=== PATIENT | male | born 1980 | race Caucasian/White ===

== ENCOUNTER 2021-03-04 07:10 | Outpatient (REF) | payer OTHER, SELFPAY ==
[2021-03-04 08:49] LABS: Hematocrit 45.4 % (42-52); Hemoglobin 15.2 g/dl (14.0-18.0); Mean Corpuscular HGB Conc 33.5 g/dl (31.0-36.0); Mean Corpuscular Hemoglobin 28.7 pg (27.0-33.0); Mean Corpuscular Volume 85.7 fL (80-98); Mean Platelet Volume 10.8 fL (9.4-12.4); Platelet Count 258 X10*3/uL (160-400); Red Cell Distribution Width 12.5 % (11.0-16.0); White Blood Count 5.5 X10*3/uL (4.8-10.8)
[2021-03-04 08:54] LABS: Estimated Average Glucose 97 mg/dL
[2021-03-04 09:12] LABS: Alanine Aminotransferase 30 U/L (0-40); Albumin Level 4.2 g/dL (3.5-5.0); Alkaline Phosphatase 51 U/L (39-117); Anion Gap 12 (12-20); Aspartate Amino Transferase 21 U/L (5-37); Bilirubin Total 0.6 mg/dL (0.0-1.0); Blood Urea Nitrogen 13 mg/dL (9-16); Calcium 9.4 mg/dL (8.4-10.2); Carbon Dioxide 27 mmol/L (22-29); Chloride 106 mmol/L (96-108); Cholesterol 154 mg/dL; Estimated Glomerular Filt Rate > 60; Glucose Fasting 101 mg/dL (60-99); HDL Cholesterol 32 mg/dL; LDL Cholesterol Calculated 105 mg/dl; Potassium 4.8 mmol/L (3.3-5.1); Sodium 140 mmol/L (135-145); Total Protein 6.7 g/dL (6.5-8.0); Triglycerides 88 mg/dL
[2021-03-04 09:22] LABS: TSH reflex Free T4 0.99 uIU/mL (0.32-4.0); Vitamin D 25-OH Total 26.9 ng/mL (>30)
== END 2021-03-04 07:11 | disposition home or self-care (01) ==
LOC: HO.LAB 07:10
PROVIDERS: PCP Physician Assistant; Visit Provider Physician Assistant
DX: E66.01 Morbid (severe) obesity due to excess calories (principal); Z68.42 Body mass index [BMI] 45.0-49.9, adult; I10 Essential (primary) hypertension; E78.00 Pure hypercholesterolemia, unspecified; E55.9 Vitamin D deficiency, unspecified
CPT/HCPCS: 36415; 80053; 80061; 82306; 83036; 84443; 85027

== ENCOUNTER 2021-10-09 07:15 | Outpatient (REF) | payer OTHER, SELFPAY ==
[2021-10-09 08:06] LABS: Hematocrit 44.5 % (42.0-52.0); Hemoglobin 15.3 g/dl (14.0-18.0); Mean Corpuscular HGB Conc 34.4 g/dl (31.0-36.0); Mean Corpuscular Hemoglobin 29.2 pg (27.0-33.0); Mean Corpuscular Volume 84.9 fL (80.0-98.0); Mean Platelet Volume 10.6 fL (9.4-12.4); Platelet Count 257 X10*3/uL (160-400); Red Blood Count 5.24 X10*6/uL (4.60-5.80); Red Cell Distribution Width 12.3 % (11.0-16.0); White Blood Count 5.4 X10*3/uL (4.8-10.8)
[2021-10-09 08:18] LABS: Estimated Average Glucose 97 mg/dL
[2021-10-09 08:27] LABS: Alanine Aminotransferase 34 U/L (0-40); Albumin Level 4.2 g/dL (3.5-5.0); Alkaline Phosphatase 46 U/L (39-117); Anion Gap 11 (12-20); Aspartate Amino Transferase 21 U/L (5-37); Bilirubin Total 0.7 mg/dL (0.0-1.0); Blood Urea Nitrogen 12 mg/dL (9-16); Calcium 9.5 mg/dL (8.4-10.2); Carbon Dioxide 24 mmol/L (22-29); Chloride 108 mmol/L (96-108); Cholesterol 144 mg/dL; Estimated Glomerular Filt Rate > 60; Glucose Fasting 105 mg/dL (60-99); HDL Cholesterol 28 mg/dL; LDL Cholesterol Calculated 102 mg/dl; Potassium 4.3 mmol/L (3.3-5.1); Sodium 139 mmol/L (135-145); Total Protein 6.8 g/dL (6.5-8.0); Triglycerides 74 mg/dL
[2021-10-09 08:49] LABS: TSH reflex Free T4 1.47 uIU/mL (0.32-4.0); Vitamin D 25-OH Total 31.6 ng/mL (>30)
== END 2021-10-09 07:16 | disposition home or self-care (01) ==
LOC: HO.LAB 07:15
PROVIDERS: PCP Physician Assistant; Visit Provider Physician Assistant
DX: E66.01 Morbid (severe) obesity due to excess calories (principal); Z68.42 Body mass index [BMI] 45.0-49.9, adult; E55.9 Vitamin D deficiency, unspecified; E78.00 Pure hypercholesterolemia, unspecified
CPT/HCPCS: 36415; 80053; 80061; 82306; 83036; 84443; 85027

== ENCOUNTER 2023-05-25 07:53 | Outpatient (AMB) | payer OTHER, SELFPAY ==
[2023-05-25 08:06] VITALS: BP 118/72; PULSE 86; O2SAT 99; BMI 43.1
--- NOTE | 2023-05-25 08:06 | MHC.PC.OV ---
Vital Signs 05/25/23 08:06 Height 5 ft 11 in Weight 309 lb BMI 43.1 BP 118/72 Blood Pressure Location Lt brachial Position Sitting Pulse 86 Pulse Source Pulse Oximeter Pulse Oximetry (%) 99 Oxygen Delivery Method Room Air Intake Visit Reasons: PE Allergies No Known Allergies [No Known Allergies*] Allergy (Verified 05/25/23 08:14) Medication List - Last Reconciled 05/25/23 by Romeo Bass PA-C atorvastatin 20 mg PO DAILY 90 days cholecalciferol (vitamin D3) 50 mcg PO DAILY Tobacco use date assessed: 05/25/23 Dental Screening Dental Screen Date: 05/25/23 Did you have a dental visit in the last 12 months?: Yes Did you have a dental problem in the last 6 months where you did not have access to dental care?: No Was dental information given to patient?: Patient has dentist HPI PE HPI Details Patient is a 43-year-old here today for and annual physical. . Patient has a past history significant for morbid obesity Hypercholesterol, worthons tumor. .. 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 ENT speacialist recommending removal. .. Hyperlipidemia: Patient continues on atorvastatin 20 mg in his cholesterol is been stable. .. Obesity: Has lost weight since last office visit. He reports he has recently started going back to his [employer] gym. vaccine: UTD with COVID , flu Laboratory Tests 11/11/19 09:30 Creatinine 0.86 Total Bilirubin 1.2 H Cholesterol 139 D LDL Cholesterol, C alc 92 25-OH Vitamin D To nickie 24.6 Laboratory Tests 03/04/21 10/09/21 07:30 07:24 Cholesterol 144 LDL Cholesterol, C alc 105 102 [facility] Surgical History History of lipoma History of eye surgery History of root canal procedure History of wisdom tooth extraction Family History Father Medical history unknown Mother No problems noted. 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 1. Little interest or pleasure in doing things: not at all 2. Feeling down, depressed, or hopeless: not at all 3. Trouble falling or staying asleep, or sleeping too much: not at all 4. Feeling tired or having little energy: not at all 5. Poor appetite or overeating: not at all 6. Feeling bad about yourself - or that you are a failure or have let yourself or your family down: not at all 7. Trouble concentrating on things, such as reading the newspaper or watching television: not at all 8. Moving or speaking so slowly that other people could have noticed. Or the opposite - being so fidgety or restless that you have been moving around a lot more than usual: not at all 9. Thoughts that you would be better off or of hurting yourself in some way: not at all Total score: 0 Depression Screening Interpretation: Negative 56192 - PHQ-9 Billing: Yes Source: Developed by Drs. Oleg Amanda, Dominique Valencia, Steven Scruggs and colleagues, with an educational verónica from [employer]. Thrive Questionnaire Date Thrive assessed: 05/25/23 I am a: Patient What is your living situation today?: I have a steady place to live Within the past 12 months, did the food you bought not last and you didn't have the money to get more?: Never true Within the past 12 months, did you worry whether your food would run out before you got money to buy more?: Never true Do you have trouble paying for medicines?: No Do you have trouble getting transportation to medical appointments?: No Do you have trouble paying your heating and electricity bill?: No Do you have trouble taking care of your child, family member or friend?: No Do you have trouble with day-to-day activities such as bathing, preparing meals, shopping, managing finances, etc.?: No Are you currently unemployed and looking for a job?: No Are you interested in more education?: No Currently or been in a relationship where the following occur: no concerns reported AUDIT C Alcohol Use Questionnaire (AUDIT-C) 1. How often do you have a drink containing alcohol?: 2-3 times a week 2. How many drinks containing alcohol do you have on a typical day when you are drinking?: 1 or 2 3. How often do you have six or more drinks on one occasion?: Never Total Score: 3 Score Reviewed/Action Taken: No VELVET-7 AMB Questionnaire VELVET-7 Date VELVET - 7 assessed: 05/25/23 Feeling nervous, anxious, or on edge: 0 = Not at all Not being able to stop or control worryin = Not at all Worrying too much about different things: 0 = Not at all Trouble relaxin = Not at all Being so restless that it is hard to sit still: 0 = Not at all Becoming easily annoyed or irritable: 0 = Not at all Feeling afraid as if something awful might happen: 0 = Not at all Total VELVET-7 score (0-4 normal; 5-9 mild; 10-14 moderate; 15-21 severe): 0 Source: Developed by Drs. Oleg Amanda, Dominique Valencia, Steven Scruggs and colleagues, with an educational verónica from [employer]. VELVET-7 Assessment Billing VELVET-7 Assessment Tool: VELVET-7 Assessment 02076 Review of Systems Const Denies body aches, Denies chills, Denies excessive sweating, Denies fatigue, Denies fever(s) and Denies headache(s) Eyes Denies blurry vision ENT Denies dysphagia, Denies vertigo, Denies dizziness, Denies headache(s), Denies hearing loss and Denies tinnitus Card Denies chest pain, Denies chest pain with activity, Denies syncope, Denies irregular heart rhythm and Denies dyspnea Resp Denies chest congestion, Denies cough, Denies hemoptysis, Denies dyspnea and Denies wheezing GI Denies abdominal pain, Denies melena, Denies hematochezia, Denies coffee ground emesis, Denies dysphagia, Denies diarrhea, Denies nausea and Denies vomiting Denies difficulty urinating, Denies dysuria, Denies urinary frequency, Denies urinary hesitancy and Denies urinary urgency Musc Denies arthralgias, Denies limited range of motion, Denies muscle cramps and Denies muscle weakness Skin/Breast Denies rash and Denies skin ulcer Neuro Denies Abnormal speech present, Denies confusion, Denies vertigo, Denies dizziness, Denies syncope, Denies headache(s), Denies memory loss and Denies seizure-like activity Psych Denies anxiety, Denies confusion, Denies depression, Denies memory loss, Denies panic attacks and Denies paranoia Endo Denies excessive sweating, Denies fatigue, Denies flushing, Denies polydipsia and Denies polyuria Aller/Immun Denies wheezing Physical exam (Primary Care) Vital Signs: Last Vital Signs Pulse 86 05/25/23 08:06 BP 118/72 05/25/23 08:06 Pulse Ox 99 05/25/23 08:06 Oxygen Delivery Method Room Air 05/25/23 08:06 BMI result Body Mass Index 43.1 BMI Assessment/Plan discussion: High Tobacco/Smoking Status: Tobacco use Status Tobacco use date assessed 05/25/23 05/25/23 08:12 Patient Tobacco Use Status Never used Tobacco 05/25/23 08:12 Tobacco use type Cigarette 05/25/23 08:12 e-Cigarette/Vaping Use Never Used 05/25/23 08:12 PHQ-9: PHQ-9 Score PHQ-9: Total score 0 05/25/23 08:12 Depression Screening Interpretation: Negative Thrive Assessment: Date of Thrive Assessment Date Thrive assessed 05/25/23 05/25/23 08:12 Currently or been in a relationship where the following occur: no concerns reported Const Other: Obese General: cooperative, comfortable, no acute distress, alert and awake; No confusion Orientation/consciousness: oriented to person, oriented to place, patient oriented x3 and No confusion HENMT Head: Yes normocephalic Head images: 1. SMALL PALPABLE MASS OVER LEFT TMJ REGION Ears: external ears normal and TM's normal bilaterally Face and sinus: No sinus tenderness Mouth: Normal oral and palatal mucosa present and tongue normal Teeth and gingiva: dentition normal and gingiva normal Throat: Yes posterior oropharynx normal, Yes tonsils normal and Yes uvula midline Eyes Conjunctivae: conjunctivae normal Sclerae: sclerae normal Pupils: Equal, round and reactive pupils present EOM: EOMs intact bilaterally Direct Ophthalmoscopy: No no photophobia Neck Neck: Yes no lymphadenopathy, No tender and Yes no JVD Thyroid: Thyroid normal Carotids: no bruits Chest Chest palpation & inspection: no tenderness Resp Effort & Inspection: normal respiratory effort, no audible wheezes, not labored and no stridor Auscultation: no crackles, no rales, no rhonchi and no wheezes Cardio Jugular venous distension: no JVD Rate: regular rate, not bradycardic and not tachycardic Rhythm: regular rhythm Bruits: no carotid bruits Peripheral pulses: Peripheral pulses 2+ throughout GI Inspection: Yes normal to inspection, No abdominal wall ecchymosis and No visible herniation Palpation (GI): Soft to palpation, nontender, no guarding, not rigid and No hepatosplenomegaly present Auscultation: normoactive bowel sounds General: Yes no CVA tenderness Back/Spine/Pelvis Back: no CVA tenderness and No back tenderness Cervical Spine: cervical ROM normal Thoracic/Lumbar Spine: thoracic and lumbar spine normal to inspection, straight leg raise negative bilaterally, No thoraco-lumbar ROM limited and No lumbar spinal tenderness Skin Lesions: no lesions Rashes: no rashes Wounds: no wounds Neuro General: oriented to person, oriented to place, patient oriented x3, CN's II-XI intact bilaterally and No confusion Cranial nerves: Yes Equal, round and reactive pupils present and Yes Normal accommodation reflex present Cognition (Neuro): normal cognition Speech: No Abnormal speech present Gait exam (Neuro): Normal gait present Motor exam (neuro): 5/5 motor strength present throughout Extrem Right upper extremity: full ROM; no cyanosis Left upper extremity: full ROM; no cyanosis Right lower extremity: no edema Left lower extremity: no edema Psych Appearance: grossly normal Mental Status: mental status grossly normal Affect: normal affect Attitude: cooperative Thought process: Normal thought process present Assessment and Plan Assessment & Plan (1) Annual physical exam: Code(s): Z00.00 - Encounter for general adult medical examination without abnormal findings (2) HLD (hyperlipidemia): Code(s): E78.5 - Hyperlipidemia, unspecified Qualifiers: Hyperlipidemia type: pure hypercholesterolemia Qualified Code(s): E78.00 - Pure hypercholesterolemia, unspecified Plan: Patient continues on statin therapy without any side effect. Most recent lipid panel showing excellent control of his total cholesterol and LDL. (3) Obese: Code(s): E66.9 - Obesity, unspecified Qualifiers: Obesity type: due to excess calories Obesity classification: adult class 3 (BMI >= 40) Serious obesity comorbidity presence: without serious comorbidity Body mass index: BMI 40.0-44.9 Qualified Code(s): E66.01 - Morbid (severe) obesity due to excess calories; Z68.41 - Body mass index [BMI] 40.0-44.9, adult Plan: Patient is seeing an alternative medicine clinic and has been started on weight loss medication as lost 15 lb in the last month. He continues to work on being more physically active and adapting to better eating habits and can to speed's more weight loss. 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 They offered elective removal though patient is holding off for now. Orders: Orders Comprehensive [facility]. Panel Fast Today E78.00 - Pure hypercholesterolemia, unspecified Vitamin D 25-OH Total Today E55.9 - Vitamin D deficiency, unspecified Lipid Panel Today E78.00 - Pure hypercholesterolemia, unspecified Coding Level of Care Code Est Pt Prev Care 40-64y(18427) Diagnoses Annual physical exam Z00.00 Pure hypercholesterolemia E78.00 Hyperlipidemia type: pure hypercholesterolemia Class 3 severe obesity due to excess calories without serious comorbidity with body mass index (BMI) of 40.0 to 44.9 in adult E66.01; Z68.41 Obesity type: due to excess calories Obesity classification: adult class 3 (BMI >= 40) Serious obesity comorbidity presence: without serious comorbidity Body mass index: BMI 40.0-44.9 Submandibular gland mass K11.8 Additional Codes VELVET-7 Assessment Billing - VELVET-7 Assessment Tool: VELVET-7 Assessment [id number] ([id number])
== END 2023-05-25 08:30 | disposition home or self-care (01) ==
PROVIDERS: PCP Physician Assistant; Visit Provider Physician Assistant
DX: Z00.00 Encounter for general adult medical examination without abnormal findings (principal); E78.00 Pure hypercholesterolemia, unspecified; E66.01 Morbid (severe) obesity due to excess calories; Z68.41 Body mass index [BMI] 40.0-44.9, adult; K11.8 Other diseases of salivary glands
CPT/HCPCS: 99396

== ENCOUNTER 2023-05-29 08:02 | Outpatient (REF) | payer OTHER, SELFPAY ==
[2023-05-29 09:38] LABS: Alanine Aminotransferase 33 U/L (0-40); Albumin Level 4.3 g/dL (3.5-5.0); Alkaline Phosphatase 46 U/L (39-117); Anion Gap 14 (12-20); Aspartate Amino Transferase 22 U/L (5-37); Bilirubin Total 0.8 mg/dL (0.0-1.0); Blood Urea Nitrogen 11 mg/dL (9-16); Calcium 9.4 mg/dL (8.4-10.2); Carbon Dioxide 23 mmol/L (22-29); Chloride 106 mmol/L (96-108); Cholesterol 128 mg/dL (<200); Estimated Glomerular Filt Rate > 60; Glucose Fasting 90 mg/dL (60-99); HDL Cholesterol 30 mg/dL (>40); LDL Cholesterol Calculated 71 mg/dL (<100); Potassium 4.3 mmol/L (3.3-5.1); Sodium 139 mmol/L (135-145); Triglycerides 137 mg/dL (<150)
[2023-05-29 09:52] LABS: Vitamin D 25-OH Total 40.5 ng/mL (>30)
== END 2023-05-29 08:03 | disposition home or self-care (01) ==
LOC: HO.LAB 08:02
PROVIDERS: PCP Physician Assistant; Visit Provider Physician Assistant
DX: E78.00 Pure hypercholesterolemia, unspecified (principal); E55.9 Vitamin D deficiency, unspecified
CPT/HCPCS: 36415; 80053; 80061; 82306

== ENCOUNTER 2024-05-30 07:58 | Outpatient (AMB) | payer OTHER, SELFPAY ==
--- NOTE | 2024-05-30 08:13 | A.OFFPC_ITS ---
Vital Signs 05/30/24 08:16 Height 5 ft 11 in Weight 278 lb BMI 38.8 BP 118/72 Blood Pressure Location Lt brachial Position Sitting Intake Visit Reasons: Annual Exam Intake Note: Patient here for an annual physical exam Hospital Wellness Coordinator Required: No Accompanied by: Self / Same As Patient Allergies No Known Allergies [No Known Allergies*] Allergy (Verified 05/30/24 08:21) Medication List - Last Reconciled 05/30/24 by Romeo Bass PA-C atorvastatin 20 mg PO DAILY 90 days cholecalciferol (vitamin D3) 50 mcg PO DAILY Tobacco use date assessed: 05/30/24 Dental Screening Dental Screen Date: 05/30/24 Did you have a dental visit in the last 12 months?: Yes Did you have a dental problem in the last 6 months where you did not have access to dental care?: No Was dental information given to patient?: Patient has dentist HPI Annual Exam HPI Details Patient is a 44-year-old here today for and annual physical. . Patient has a past history significant for morbid obesity Hypercholesterol, worthons tumor. concerns--> patient reports over the last several months feeling a sensation of cold in his hands intermittently. Also has had a decreased sense of smell for quite some time and has upcoming appointment with ENT for evaluation. He can not recall having COVID infection and has had all his COVID booster vaccines. .. 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 ENT speacialist recommending removal. .. Hyperlipidemia: Patient continues on atorvastatin 20 mg in his cholesterol is been stable. .. Obesity: Attending in clinic in getting semaglutide injections. Has lost quite a bit of weight and feels great. Today's BMI at 38 He reports he has recently started going back to his [employer] gym. vaccine: UTD with COVID , flu and tetanus vaccine [facility] Surgical History History of lipoma History of eye surgery History of root canal procedure History of wisdom tooth extraction Family History Father Medical history unknown Mother No problems noted. 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 1. Little interest or pleasure in doing things: not at all 2. Feeling down, depressed, or hopeless: not at all 3. Trouble falling or staying asleep, or sleeping too much: not at all 4. Feeling tired or having little energy: not at all 5. Poor appetite or overeating: not at all 6. Feeling bad about yourself - or that you are a failure or have let yourself or your family down: not at all 7. Trouble concentrating on things, such as reading the newspaper or watching television: not at all 8. Moving or speaking so slowly that other people could have noticed. Or the opposite - being so fidgety or restless that you have been moving around a lot more than usual: not at all 9. Thoughts that you would be better off or of hurting yourself in some way: not at all Total score: 0 Depression Screening Interpretation: Negative Depression Screening Done: Yes 25066 - PHQ-9 Billing: Yes Source: Developed by Drs. Oleg Amanda, Dominique Valencia, Steven Scruggs and colleagues, with an educational verónica from [employer]. Thrive Questionnaire Date Thrive assessed: 05/23/24 I am a: Patient What is your living situation today?: I have a steady place to live Within the past 12 months, did the food you bought not last and you didn't have the money to get more?: Never true Within the past 12 months, did you worry whether your food would run out before you got money to buy more?: Never true Do you have trouble paying for medicines?: No Do you have trouble getting transportation to medical appointments?: No Do you have trouble paying your heating and electricity bill?: No Do you have trouble taking care of your child, family member or friend?: No Do you have trouble with day-to-day activities such as bathing, preparing meals, shopping, managing finances, etc.?: No Are you currently unemployed and looking for a job?: No Are you interested in more education?: No Please select the resources that you would like help with: None Currently or been in a relationship where the following occur: No concerns reported THRIVE Score: 0 AUDIT C Alcohol Use Questionnaire (AUDIT-C) 1. How often do you have a drink containing alcohol?: 2-4 times a month 2. How many drinks containing alcohol do you have on a typical day when you are drinking?: 1 or 2 3. How often do you have six or more drinks on one occasion?: Less than monthly Total Score: 3 VELVET-7 AMB Questionnaire VELVET-7 Date VELVET - 7 assessed: 05/30/24 Feeling nervous, anxious, or on edge: 0 = Not at all Not being able to stop or control worryin = Not at all Worrying too much about different things: 0 = Not at all Trouble relaxin = Several days Being so restless that it is hard to sit still: 0 = Not at all Becoming easily annoyed or irritable: 1 = Several days Feeling afraid as if something awful might happen: 0 = Not at all Total VELVET-7 score (0-4 normal; 5-9 mild; 10-14 moderate; 15-21 severe): 2 Source: Developed by Drs. Oleg Amanda, Dominique Valencia, Steven Scruggs and colleagues, with an educational verónica from [employer]. VELVET-7 Assessment Billing VELVET-7 Assessment Tool: VELVET-7 Assessment 64214 Review of Systems Const Denies body aches, Denies chills, Denies excessive sweating, Denies fatigue, Denies fever(s) and Denies headache(s) Eyes Denies blurry vision ENT Denies dysphagia, Denies vertigo, Denies dizziness, Denies headache(s), Denies hearing loss and Denies tinnitus Card Denies chest pain, Denies chest pain with activity, Denies syncope, Denies irregular heart rhythm and Denies dyspnea Resp Denies chest congestion, Denies cough, Denies hemoptysis, Denies dyspnea and Denies wheezing GI Denies abdominal pain, Denies melena, Denies hematochezia, Denies coffee ground emesis, Denies dysphagia, Denies diarrhea, Denies nausea and Denies vomiting Denies difficulty urinating, Denies dysuria, Denies urinary frequency, Denies urinary hesitancy and Denies urinary urgency Musc Denies arthralgias, Denies limited range of motion, Denies muscle cramps and Denies muscle weakness Skin/Breast Denies rash and Denies skin ulcer Neuro Denies Abnormal speech present, Denies confusion, Denies vertigo, Denies dizziness, Denies syncope, Denies headache(s), Denies memory loss and Denies seizure-like activity Psych Denies anxiety, Denies confusion, Denies depression, Denies memory loss, Denies panic attacks and Denies paranoia Endo Denies excessive sweating, Denies fatigue, Denies flushing, Denies polydipsia and Denies polyuria Aller/Immun Denies wheezing Physical exam (Primary Care) Vital Signs: Last Vital Signs BP 118/72 05/30/24 08:16 BMI result Body Mass Index 38.8 Tobacco/Smoking Status: Tobacco use Status Tobacco use date assessed 05/30/24 05/30/24 08:20 Patient Tobacco Use Status Never used Tobacco 05/30/24 08:14 Tobacco use type 05/30/24 08:20 e-Cigarette/Vaping Use Never Used 05/30/24 08:14 PHQ-9: PHQ-9 Score PHQ-9: Total score 0 05/30/24 08:28 Depression Screening Interpretation: Negative Thrive Assessment: Date of Thrive Assessment Date Thrive assessed 05/23/24 05/30/24 08:14 Currently or been in a relationship where the following occur: No concerns reported Const General: cooperative, comfortable, no acute distress, alert and awake; No confusion Orientation/consciousness: oriented to person, oriented to place, patient oriented x3 and No confusion HENMT Head: Yes normocephalic Ears: external ears normal and TM's normal bilaterally Face and sinus: No sinus tenderness Mouth: Normal oral and palatal mucosa present and tongue normal Teeth and gingiva: dentition normal and gingiva normal Throat: Yes posterior oropharynx normal, Yes tonsils normal and Yes uvula midline Eyes Conjunctivae: conjunctivae normal Sclerae: sclerae normal Pupils: Equal, round and reactive pupils present EOM: EOMs intact bilaterally Direct Ophthalmoscopy: No no photophobia Neck Neck: Yes no lymphadenopathy, No tender and Yes no JVD Thyroid: Thyroid normal Carotids: no bruits Chest Chest palpation & inspection: no tenderness Resp Effort & Inspection: normal respiratory effort, no audible wheezes, not labored and no stridor Auscultation: no crackles, no rales, no rhonchi and no wheezes Cardio Jugular venous distension: no JVD Rate: regular rate, not bradycardic and not tachycardic Rhythm: regular rhythm Bruits: no carotid bruits Peripheral pulses: Peripheral pulses 2+ throughout GI Inspection: Yes normal to inspection, No abdominal wall ecchymosis and No visible herniation Palpation (GI): Soft to palpation, nontender, no guarding, not rigid and No hepatosplenomegaly present Auscultation: normoactive bowel sounds General: Yes no CVA tenderness Back/Spine/Pelvis Back: no CVA tenderness and No back tenderness Cervical Spine: cervical ROM normal Thoracic/Lumbar Spine: thoracic and lumbar spine normal to inspection, straight leg raise negative bilaterally, No thoraco-lumbar ROM limited and No lumbar spinal tenderness Skin Lesions: no lesions Rashes: no rashes Wounds: no wounds Neuro General: oriented to person, oriented to place, patient oriented x3, CN's II-XI intact bilaterally and No confusion Cranial nerves: Yes Equal, round and reactive pupils present and Yes Normal accommodation reflex present Cognition (Neuro): normal cognition Speech: No Abnormal speech present Gait exam (Neuro): Normal gait present Motor exam (neuro): 5/5 motor strength present throughout Extrem Right upper extremity: full ROM; no cyanosis Left upper extremity: full ROM; no cyanosis Right lower extremity: no edema Left lower extremity: no edema Psych Appearance: grossly normal Mental Status: mental status grossly normal Affect: normal affect Attitude: cooperative Thought process: Normal thought process present Assessment and Plan Assessment & Plan (1) Annual physical exam: Code(s): Z00.00 - Encounter for general adult medical examination without abnormal findings (2) HLD (hyperlipidemia): Code(s): E78.5 - Hyperlipidemia, unspecified Qualifiers: Hyperlipidemia type: pure hypercholesterolemia Qualified Code(s): E78.00 - Pure hypercholesterolemia, unspecified Plan: Patient continues on statin therapy without any side effect. Most recent lipid panel showing excellent control of his total cholesterol and LDL. Goal LDL is to remain below 160 (3) Obese: Code(s): E66.9 - Obesity, unspecified Qualifiers: Body mass index: BMI 40.0-44.9 Obesity classification: adult class 3 (BMI >= 40) Obesity type: due to excess calories Serious obesity comorbidity presence: without serious comorbidity Qualified Code(s): E66.01 - Morbid (severe) obesity due to excess calories; Z68.41 - Body mass index [BMI] 40.0- 44.9, adult Plan: Patient is seeing an alternative medicine clinic and has been started on weight loss medication as lost significant amount of weight. He continues to work on being more physically active and adapting to better eating habits and can to speed's more weight loss. 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 They offered elective removal though patient is holding off for now. (5) Paresthesia of hand, bilateral: Code(s): R20.2 - Paresthesia of skin Plan: Patient does report bilateral hand sensation of coldness in some numbness. Does not appear to have any vascular compromise on physical exam. Will send for EMG to evaluate for bilateral carpal tunnel syndrome Orders: Orders NE electromyogram (EMG) 05/30/24 R20.2 - Paresthesia of skin Patient Instructions: Goal: LDL to remain below 160 Barriers: Adherence to physical activity and healthy eating habits Coding Level of Care Code Est Pt Prev Care 40-64y(05251) Diagnoses Annual physical exam Z00.00 Pure hypercholesterolemia E78.00 Hyperlipidemia type: pure hypercholesterolemia Class 3 severe obesity due to excess calories without serious comorbidity with body mass index (BMI) of 40.0 to 44.9 in adult E66.01; Z68.41 Body mass index: BMI 40.0-44.9 Obesity classification: adult class 3 (BMI >= 40) Obesity type: due to excess calories Serious obesity comorbidity presence: without serious comorbidity Submandibular gland mass K11.8 Paresthesia of hand, bilateral R20.2 Additional Codes VELVET-7 Assessment Billing - VELVET-7 Assessment Tool: VELVET-7 Assessment 63275 ([id number])
[2024-05-30 08:16] VITALS: BP 118/72; BMI 38.8
== END 2024-05-30 08:38 | disposition home or self-care (01) ==
PROVIDERS: PCP Physician Assistant; Visit Provider Physician Assistant
DX: Z00.00 Encounter for general adult medical examination without abnormal findings (principal); E78.00 Pure hypercholesterolemia, unspecified; E66.01 Morbid (severe) obesity due to excess calories; Z68.41 Body mass index [BMI] 40.0-44.9, adult; K11.8 Other diseases of salivary glands; R20.2 Paresthesia of skin

== ENCOUNTER → 2024-05-30 07:58 | Outpatient (BNVA) | payer OTHER, SELFPAY | PROVIDERS: PCP Physician Assistant; Visit Provider Physician Assistant | DX: Z00.01 Encounter for general adult medical examination with abnormal findings (principal); E78.00 Pure hypercholesterolemia, unspecified; E66.01 Morbid (severe) obesity due to excess calories; Z68.41 Body mass index [BMI] 40.0-44.9, adult; K11.8 Other diseases of salivary glands; R20.2 Paresthesia of skin; Z79.899 Other long term (current) drug therapy | CPT/HCPCS: 96127 ==

== ENCOUNTER 2024-07-11 10:28 | Outpatient (REF) | payer OTHER, SELFPAY ==
--- NOTE | 2024-07-11 10:30 | EMG_ITS ---
Bilateral median and ulnar motor and sensory studies were performed. Bilateral radial sensory and median and lateral antecubital brachial sensory studies were performed and paraspinal muscles were tested with a needle. 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 MD DANDRE Rodriguez/HANH / [id number]
== END 2024-07-11 10:29 | disposition home or self-care (01) ==
LOC: HO.NEURO 10:28
PROVIDERS: PCP Physician Assistant; Visit Provider Physician Assistant
DX: Z13.89 Encounter for screening for other disorder (principal)

== ENCOUNTER 2024-07-15 07:34 | Outpatient (REF) | payer OTHER, SELFPAY ==
[2024-07-15 09:55] LABS: Hematocrit 44.3 % (42.0-52.0); Hemoglobin 15.2 g/dl (14.0-18.0); Mean Corpuscular HGB Conc 34.3 g/dl (31.0-36.0); Mean Corpuscular Hemoglobin 29.7 pg (27.0-33.0); Mean Corpuscular Volume 86.7 fL (80.0-98.0); Mean Platelet Volume 10.5 fL (9.4-12.4); Platelet Count 240 X10*3/uL (160-400); Red Blood Count 5.11 X10*6/uL (4.60-5.80); Red Cell Distribution Width 12.5 % (11.0-16.0); White Blood Count 5.4 X10*3/uL (4.8-10.8)
[2024-07-15 10:22] LABS: Alanine Aminotransferase 29 U/L (0-40); Albumin Level 4.3 g/dL (3.5-5.0); Alkaline Phosphatase 42 U/L (39-117); Anion Gap 14 (12-20); Aspartate Amino Transferase 30 U/L (5-37); Bilirubin Total 0.8 mg/dL (0.0-1.0); Blood Urea Nitrogen 14 mg/dL (9-16); Carbon Dioxide 26 mmol/L (22-29); Chloride 107 mmol/L (96-108); Cholesterol 125 mg/dL (<200); Estimated Glomerular Filt Rate > 60; Glucose Fasting 94 mg/dL (60-99); HDL Cholesterol 35 mg/dL (>40); LDL Cholesterol Calculated 79 mg/dL (<100); Potassium 4.3 mmol/L (3.3-5.1); Sodium 143 mmol/L (135-145); Triglycerides 59 mg/dL (<150)
[2024-07-15 10:41] LABS: Vitamin D 25-OH Total 38.8 ng/mL (>30)
== END 2024-07-15 07:35 | disposition home or self-care (01) ==
LOC: HO.LAB 07:34
PROVIDERS: PCP Physician Assistant; Visit Provider Physician Assistant
DX: E78.00 Pure hypercholesterolemia, unspecified (principal); E55.9 Vitamin D deficiency, unspecified
CPT/HCPCS: 36415; 80053; 80061; 82306; 85027

== ENCOUNTER 2024-08-16 10:20 | Outpatient (AMB) | payer OTHER, SELFPAY ==
--- NOTE | 2024-08-16 10:34 | A.OFFVIS_ITS ---
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 Patient reports that he was seen by his PCP for his annual appointment and was referred for an EMG. He has a cold numbing sensation in both of his hands for the last 6 months. States his symptoms are equal in both hands. Denies dropping items. No previous tx or injuries. He does not use any bracing. 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 Patient states that his numbness and tingling is intermittent, daily, and worse at night. Patient states that this numbness and tingling affects the thumb, index, middle fingers of bilateral hands. Patient had EMG done on 07/11/2024 revealing mild carpal tunnel syndrome bilaterally. No other acute complaints or concerns at this time. [facility] Surgical History History of lipoma History of eye surgery History of root canal procedure History of wisdom tooth extraction Family History Father Medical history unknown Mother No problems noted. 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 Good APB muscle firing and good finger cross. Vascular: Capillary refill brisk. ROM: Patient can make a fist and extend all their digits. Skin: No lacerations or abrasions noted. General: No ecchymosis. No erythema or evidence of infection. 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 MD DANDRE Rodriguez/HANH Assessment & Plan Assessment & Plan (1) Bilateral carpal tunnel syndrome: Code(s): G56.03 - Carpal tunnel syndrome, bilateral upper limbs Category: Medical Plan One carpal tunnel syndrome, left Symptoms intermittent, daily, worse at night I educated the patient about the condition. I discussed both operative and nonoperative treatment options. The patient would like to proceed with surgery. The risks and benefits of operative treatment were discussed with the patient and the patient wishes to proceed with surgery. These risks include, but are not limited to, risk of damage to blood vessels, nerves, tendons, infection, recurrence, incomplete relief of preoperative symptoms, persistent pain, possible need for further surgery, and the risks associated with regional blocks and/or anesthesia. Plan is to take the patient to the operating room at some point in the next few weeks for the following procedures: 1. Left carpal tunnel release under local anesthesia All of the preoperative paperwork including the consent was discussed today. All of the patient's questions were answered in the clinic today. The patient understands that they will be in contact with our surgical appliance fitter to discuss scheduling their procedure. Patient denies diabetes, blood thinners, asthma, heart issues, lung issues, kidney issues, or current smoking. 2. Carpal tunnel syndrome, right Symptoms intermittent, daily, worse at night This time, patient would like proceed with operative intervention on the left prior to any intervention on the right Patient is advised that if he is recovering well in his postoperative visit from left-sided surgery, we can get the right side signed up at that time Patient was amenable to this plan Coding Level of Care Code New Pt Level 4 (64727) Diagnoses Bilateral carpal tunnel syndrome G56.03
--- OUTSIDE RECORDS SUMMARY | 2024-08-17 00:19 | XMS_ITS | Data Portability ---
Author Organization ANANTH Byrd [employer] [facility] [address] Address [address] [place] [address] Assessment No assessment recorded. Plan of Treatment Reminders Order Date Submit Date Provider Last Modified By Organization Details Last Modified Time Details Appointments None recorded. Lab None recorded. Referral None recorded. Procedures None recorded. Surgeries None recorded. Imaging None recorded. Medication Orders prednisone 10 mg tablet 2021 [facility]/Pharmacy #[id number], [address] [place], [address], 09:58:58 albuterol sulfate HFA 90 mcg/actuati on aerosol inhaler 2021 [facility]/Pharmacy #[id number], [address] [place], [address], 09:58:58 Patient TargetsNo targets recorded. Patient Instructions Encounter Date Encounter Id Patient Instructions Last Modified By Organization Details Last Modified Time 08/09/2022 [id number] cough: care instructions Not available 08/09/2022 09:58:56 Acute bronchitis is a common clinical condition characterized by an acute onset but persistent cough, with or without sputum production. It is typically self-limited, resolving within one to three weeks. Symptoms result from inflammation of the lower respiratory tract and are most frequently due to viral infection. Treatment is focused on patient education and supportive care. Antibiotics are not needed for the great majority of patients with acute bronchitis but are greatly overused for this condition. Reducing antibiotic use for acute bronchitis is a national and international health care priority. In most patients, the cough persists for 1 to 3 weeks, with a average duration of 18 days. The cough may be associated with either purulent or nonpurulent sputum production The presence of purulent sputum is a nonspecific finding and does not appear to be predictive of bacterial infection or that antibiotics are needed. For the great majority of patients, use of antibiotics does not hasten recovery or prevent complications but puts patients at increased risk of adverse effects including potentially severe complications such as Clostridioides difficile infection and anaphylaxis. Non-Pharmacological treatment for coughin. Throat lozenges 2. Hot tea 3. Honey 4. Smoking cessation 5. Avoidance of secondhand smoke. Pharmacological Treatment: 1. Robatussin or Guafenasin 2. Antihistamines 3. Dextromethoraphen I would plan on being seen again if any of the following symptoms develop: 1. Fever (100.5) 2. Shortness of breath 3. Wheezing 4. Worsening Cough. I would go to the ER if you develop: 1. Severe Shortness of breath 2. Chest Pain 3. Wheezing 4. Coughing up Blood Not available 08/09/2022 09:58:07 Reason for Referral None Reported. Problems Name Problem SNOMED Code Status Onset Date Resolution Date Notes Provider Name and Address Organization Details Recorded Time Hypercholestero lemia 78015139 Active 2021 ANANTH Drake - [facility] 09:15:21 Problem Notes None recorded. Medical Equipment None Reported. Allergies No known drug allergies Medications Name Sig Start Date Stop Date Status Note LastModified by Organization Details LastModified Time prednisone 10 mg tablet PLEASE SEE ATTACHED FOR DETAILED DIRECTION S active Not Available Not Available No t Available atorvastati n 20 mg tablet TAKE 1 TABLET BY MOUTH DAILY active Not Available Not Available No t Available ketoconazol e 2 % shampoo PLEASE SEE ATTACHED FOR DETAILED DIRECTION S active Not Available Not Available No t Available azithromyci n 250 mg tablet TAKE 2 TABLETS BY MOUTH TODAY, THEN TAKE 1 TABLET DAILY FOR 4 DAYS active Not Available Not Available No t Available benzonatate 200 mg capsule TAKE 1 CAPSULE BY MOUTH 3 TIMES A DAY NEEDED FOR COUGH 08/09 completed Not Available Not Available Not Available erythromyci n 5 mg/gram (0.5 %) eye ointment INSTILL 1/2 INCH RIBBON IN EACH AFFECTED EYE 4 TIMES A DAY 08/09 completed Not Available Not Available Not Available albuterol sulfate HFA 90 mcg/actuati on aerosol inhaler INHALE 2 PUFFS EVERY 4 HOURS BY INHALATIO N ROUTE NEEDED active Not Available Not Available No t Available ketoconazol e 2 % topical cream APPLY TO AFFECTED AREAS TRUNK 2 X DAILY UNTIL RESOLVED, THEN 1-2 TIMES WEEKLY FOR MAINTENAN CE active Not Available Not Available No t Available Vitamin D3 50 mcg (2,000 unit) capsule TAKE 1 CAPSULE BY MOUTH DAILY active Not Available Not Available No t Available Vitals Date Recorded Body height Body mass index (BMI) Body weight Oxygen saturation Oxygen saturation in Arterial blood by Pulse oximetry Heart rate Respiratory rate Body temperature Systolic blood pressure Diastolic blood pressure Provider Name and Address Organization Details Last Updated DateTime 180.34 cm 41.1 kg/m2 381451. 75 g 96 % 96 % 74 /min 18 /min 98.1 [degF] 138 mm[Hg] 89 mm[Hg] JIGAR ANY [employer] [facility] 09:18:51 Social History Question Answer Notes LastModified by [employer] ion Details LastModified Time Tobacco Smoking Status Never Smoker JIGAR ANYKEILY mcintosh, PA [employer] [email or web address] 08/09/2022 09:15:50 What Is Your Level Of Alcohol Consumption? Occasional Information not available 08/09/2022 Are You Currently Employed? Yes Information not available 08/09/2022 What Is Your Water Source? City Information not available 08/09/2022 What Is Your Heat Source? Electric Information not available 08/09/2022 Have You Had Direct Contact, Or Contact During Intimacy, With Monkeypox Rash, Scabs, Or Body Fluids From A Person With Monkeypox? No Information not available 08/09/2022 Do You Use Any Illicit Or Recreational Drugs? No Information not available 08/09/2022 Have You Recently Traveled Abroad? No Information not available 08/09/2022 Do You Or Have You Ever Used Any Other Forms Of Tobacco Or Nicotine? No Information not available 08/09/2022 Sex: Unknown Functional Status None recorded. Mental Status None recorded. Family History Nothing Reported. Medical History No medical history recorded. Immunizations Vaccine Type Date Status Note Provider Nam e and Address Organization Details Recorded Time influenza, unspecified formulation 09/06/2021 completed ANANTH Drake [facility] 08/09/2022 09:14:43 SARS-COV-2 (COVID-19) vaccine, UNSPECIFIED 09/06/2021 completed ANANTH Drake [facility] 08/09/2022 09:14:59 Past Encounters Encounter ID Performer Location Encounter Start Date Encounter Closed Date Diagnosis/Indication Diagnosis SNOMED-CT Code Diagnosis ICD10 Code [id number] [address] [address] 07/05/2022 08:31:22 07/05/2022 09:14:54 [id number] ANANTH STEVE [address] [address] 08/09/2022 08:17:21 08/09/2022 10:49:30 Acute bronchitis 93256645 J20.9 Health Concerns Section Related Observation LastModified by Organization Detai ls LastModified Time None Recorded Concern Status LastModified by Organization Details LastModified Time None Recorded Advance Directives Directive None Recorded Payers Encounter Date Sequence Insurance Name Policy Number Policy Preston Covered Member ID Preston Member ID Guarantor Name 07/05/2022 1 [facility] [id number] Herrera Stuart [id number] Herrera Stuart 08/09/2022 1 [facility] [id number] Herrera Stuart [id number] Herrera Stuart Notes Date Note Type Note Provider Name and Address Organization Details Recorded Time 08/09/2022 text/html CoughReported bypatient.Quality:i ntermittent Severity:moderate Duration:days; symptoms lasting over 2 weeks Timing:constant Context:non-smoker Modifying Factors:Cough Supprressant Associated Symptoms:no fever; no chills; no chest pain; no heartburn; no nausea; no vomiting; no wheezing; no post nasal dripNotes:The patient was seen 3 weeks ago and had a severe sore throat at that time. He reports that the symptoms regarding that has improved. Cough is constant - worse when trying to talk, but is sporatic. Was taking the Tessalon which has not helped. Some other cough suppressants were tried without relief. Denies smoking or asthma history. ANANTH STEVE [address], [place], [address], [place] - [facility] 08/09/2022 10:02:07
== END 2024-08-16 11:11 | disposition home or self-care (01) ==
PROVIDERS: PCP Physician Assistant
DX: G56.03 Carpal tunnel syndrome, bilateral upper limbs (principal)
CPT/HCPCS: 99204

== ENCOUNTER → 2024-08-16 10:20 | Outpatient (BNVA) | payer OTHER, SELFPAY | PROVIDERS: PCP Physician Assistant ==

== ENCOUNTER → 2024-09-10 12:47 | Outpatient (BNV) | payer OTHER, SELFPAY | PROVIDERS: PCP Physician Assistant; Visit Provider Radiology Diagnostic Radiology | DX: D11.9 Benign neoplasm of major salivary gland, unspecified (principal); K11.8 Other diseases of salivary glands | CPT/HCPCS: 70543 ==

== ENCOUNTER 2024-09-10 12:49 | Outpatient (REF) | payer OTHER, SELFPAY ==
--- NOTE | ~2024-09-10 | MR_ITS ---
EXAMINATION: MRI ORBIT/FACE/NECK WITHOUT AND WITH CONTRAST CLINICAL INFORMATION: Left parotid gland mass. COMPARISON: No prior MRI. Correlated to CT soft tissue neck dated April 01, 2020. TECHNIQUE: MRI of the orbits/face/neck was obtained using routine sequences without and with contrast. Intravenous contrast: Gadolinium 10 mL. No reported immediate complications FINDINGS: There is a well-defined, 19 x 14 x 26 mm lobulated and well-defined slightly decreased hypointense T1 and iso to hypointense T2 heterogeneously enhancing mildly restricted diffusion mass in the anterior inferior superficial left parotid gland. No gross lymphadenopathy. Skull base, nasopharynx, retropharynx, hypopharynx and included larynx demonstrated no gross masses. Product Picker spaces, parapharyngeal spaces and carotid compartments demonstrated no gross masses. The right parotid gland demonstrates focal fat signal characteristic abnormality in the anterior inferior superficial gland. The submandibular glands demonstrated normal morphology and enhancement pattern. The sublingual, submandibular and oral cavity demonstrated no gross masses. No gross masses in the included intracranial structures. Flow-void signal within the main vessels is normal. The craniocervical junction is intact. There is multilevel cervical spondylosis C3 C6 more conspicuous at C3-4 with probable central right subarticular disc herniation resulting in ventral indentation to the cervical spinal cord without gross cord signal abnormality. Mucosal thickening in the included paranasal sinuses. No gross masses in the intraconal or extraconal compartments of the orbits. No signal abnormality within the petrous bone. 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 Electronically signed by: Robbi Rogel MD 09/14/2024 02:12 PM [facility] [place]
--- OUTSIDE RECORDS SUMMARY | 2024-09-10 12:57 | XMS_ITS | Data Portability ---
Author Organization ANANTH Byrd [employer] [address] Address [address] [place] [address] Assessment No assessment recorded. Plan of Treatment Reminders Order Date Submit Date Provider Last Modified By Organization Details Last Modified Time Details Appointments None recorded. Lab None recorded. Referral None recorded. Procedures None recorded. Surgeries None recorded. Imaging None recorded. Medication Orders prednisone [address] [facility]/Pharmacy #[id number], [address] [place], [address], 09:58:58 albuterol sulfate HFA 90 mcg/actuati on aerosol inhaler [address] [facility]/Pharmacy #[id number], [address] [place], [address], 09:58:58 Patient TargetsNo targets recorded. Patient Instructions Encounter Date Encounter Id Patient Instructions Last Modified By Organization Details Last Modified Time 08/09/2022 [id number] cough: care instructions [email or web address] Not available 08/09/2022 09:58:56 Acute bronchitis is [...] Pain 3. Wheezing 4. Coughing up Blood [email or web address] Not available 08/09/2022 09:58:07 Reason for Referral None Reported. Problems Name Problem SNOMED Code Status Onset Date Resolution Date Notes Provider Name and Address Organization Details Recorded Time Hypercholestero lemia 79517019 Active 2021 ANANTH Drake - [facility] [...] Last Updated DateTime 180.34 cm 41.1 kg/m2 621606. 75 g 96 % 96 % 74 /min 18 /min 98.1 [degF] 138 mm[Hg] 89 mm[Hg] JIGAR ANY [email or web address] 09:18:51 Social History Question Answer Notes LastModified by [employer] ion Details LastModified Time Tobacco Smoking Status Never Smoker JIGAR ANYKEILY mcintosh, [place] [employer] [facility] 08/09/2022 09:15:50 What Is Your Level [...] Diagnosis/Indication Diagnosis SNOMED-CT Code Diagnosis ICD10 Code [id number] [address] [address] 07/05/2022 08:31:22 07/05/2022 09:14:54 [id number] ANANTH STEVE [address] [address] 08/09/2022 08:17:21 08/09/2022 10:49:30 Acute bronchitis 72228609 J20.9 Health Concerns Section Related Observation LastModified by Organization Detai ls LastModified Time None Recorded Concern Status LastModified by Organization Details LastModified Time None Recorded Advance Directives Directive None Recorded Payers Encounter Date Sequence Insurance Name Policy Number Policy Preston Covered Member ID Preston Member ID Guarantor Name 07/05/2022 1 [facility] [id number] Herrera Stuart [id number] Herrera Stuart 08/09/2022 1 [facility] [id number] Herrera Stuart [id number] Herrera Stuart Notes Date Note Type Note [...] asthma history. ANANTH STEVE [address], [place], [address], [place] - [facility] 08/09/2022 10:02:07
[2024-09-10] MEDS: gadobutroL 10 ML VIAL IVPUSH (13:50)
== END 2024-09-10 12:50 | disposition home or self-care (01) ==
LOC: HO.MRI 12:49
PROVIDERS: PCP Physician Assistant; Visit Provider Physician Assistant
DX: K11.8 Other diseases of salivary glands (principal)
CPT/HCPCS: 70543; A9585

== ENCOUNTER 2024-10-26 07:33 | Day surgery (SDC) | payer OTHER, SELFPAY ==
--- OUTSIDE RECORDS SUMMARY | 2024-08-18 07:51 | XMS_ITS | Data Portability ---
Author Organization ANATNH Byrd [employer] [facility] [address] Address [address] [place] [address] Assessment No assessment recorded. Plan of Treatment Reminders Order Date Submit Date Provider Last Modified By Organization Details Last Modified Time Details Appointments None recorded. Lab None recorded. Referral None recorded. Procedures None recorded. Surgeries None recorded. Imaging None recorded. Medication Orders prednisone 10 mg tablet 2021 [facility]/Pharmacy #[id number], [address] [place], [address], 09:58:58 albuterol sulfate HFA 90 mcg/actuati on aerosol inhaler 2021 [facility]/Pharmacy #[id number], [address] [place], [address], 09:58:58 Patient TargetsNo targets recorded. Patient Instructions Encounter Date Encounter Id Patient Instructions Last Modified By Organization Details Last Modified Time 08/09/2022 [id number] cough: care instructions Not available 08/09/2022 09:58:56 [...] Address Organization Details Recorded Time Hypercholestero lemia 44215392 Active 2021 ANANTH Drake - [facility] [...] Last Updated DateTime 180.34 cm 41.1 kg/m2 820253. 75 g 96 % 96 % 74 /min 18 /min 98.1 [degF] 138 mm[Hg] 89 mm[Hg] JIGAR ANY [employer] 09:18:51 Social History Question Answer Notes LastModified by [employer] Details LastModified Time Tobacco Smoking Status Never Smoker JIGAR ANYKEILY mcintosh, PA [employer] [facility] 08/09/2022 09:15:50 What Is Your Level [...] Diagnosis/Indication Diagnosis SNOMED-CT Code Diagnosis ICD10 Code [id number] [address] [address] 07/05/2022 08:31:22 07/05/2022 09:14:54 [id number] ANANTH STEVE [address] [address] 08/09/2022 08:17:21 08/09/2022 10:49:30 Acute bronchitis 70465109 J20.9 Health Concerns Section Related Observation LastModified by Organization Detai ls LastModified Time None Recorded Concern Status LastModified by Organization Details LastModified Time None Recorded Advance Directives Directive None Recorded Payers Encounter Date Sequence Insurance Name Policy Number Policy Preston Covered Member ID Preston Member ID Guarantor Name 07/05/2022 1 [facility] [id number] Herrera Stuart [id number] Herrera Stuart 08/09/2022 1 [facility] [id number] Herrera Stuart [id number] Herrera Stuart Notes Date Note Type Note [...] asthma history. ANANTH STEVE [address], [place], [address], [place] - [facility] 08/09/2022 10:02:07
[2024-10-26 07:47] VITALS: BP 138/81; PULSE 80; RESP 16; TEMP 36.3; O2SAT 95; BMI 38.2
--- NOTE | 2024-10-26 08:37 | PC.NURSE ---
ANANTH Meza at bedside for block. time out performed.
--- NOTE | 2024-10-26 09:00 | P.OP_ITS ---
Operative Note Operative Note Date of Service: 10/26/24 Narrative: Preop diagnosis: 1. Left Carpal tunnel syndrome Postop diagnosis: same Procedure: 1. Left Carpal tunnel release Surgeon: Dalia Serra MD [employer] Machine Tender: Eliseo WADSWORTH Anesthesia: local block using 1% lidocaine with epinephrine Findings: Thickened transverse carpal ligament. EBL: Less than 5 mL Specimens: None Complications: None Disposition: Brought to recovery room in stable condition Plan: Follow-up for 10-14 days for wound check and suture removal Indications: The patient is 44 years old, with left carpal tunnel syndrome that has been unresponsive to nonoperative management. The risks and benefits of operative treatment including but not limited to risk of damage to blood vessels, nerves, tendons, infection, persistent pain, persistent symptoms, or possible need for additional surgery were discussed with the patient and the patient wishes to proceed with surgery. Procedure: Once consent was obtained a local block was performed using a combination of 1% lidocaine with epinephrine. The patient was then brought back to the operating suite and placed on the operative table in supine position. The left upper extremity was prepped and draped in a standard surgical fashion. Once assured that we had a good block, a 2.0 cm longitudinal incision was made centered over the carpal tunnel. The incision was made through the skin to the subcutaneous tissues using a #15 blade. Dissection was made down to the level of the transverse carpal ligament with care being taken to protect the palmar cutaneous nerve. Once the transverse carpal ligament was clearly visualized, a longitudinal incision was made in the transverse carpal ligament 1st using a #15 blade, then using tenotomy scissors under direct visualization. Care was taken to look for and protect the motor branch of the median nerve when seen in this area. Once satisfied with our carpal tunnel release the wound was copiously irrigated with normal saline and hemostasis was obtained with a brief period of local pressure. The skin edges were reapproximated with some 5.0 nylon suture material and a sterile dressing was applied. The patient appears to have tolerated the procedure well and with no complications. All digits were well vascularized at the conclusion of the case.
--- NOTE | 2024-10-26 09:00 | MHC.SHP ---
Pre-Procedural Eval Section A - 24 Hr Update-Section A only Date of Service: 10/26/24 The patient is an INPATIENT: No Changes since office visit: No Cold of Flu in the past 2 weeks, No New Medical Problems, No Changes in Medication and No Patient answered all questions The patient has been examined within 24 hours of the surgical procedure. The History & Physical has been completed within 30 days and I have reviewed it.: Yes Section B - Complete if H&P > 30 days Chief Complaint: Carpal tunnel syndrome, left upper limb Allergies: Allergies Allergy/AdvReac Type Severity Reaction Status Date / Time No Known Allergies Allergy Verified 08/16/24 10:38 [No Known Allergies*] Plan Diagnosis/Plan: Unchanged I have reviewed the history and physical and performed a pertinent physical examination on my patient. No changes have occurred unless specified. Time Spent With Patient Time: Total time managing care of this patient today ____ minutes.
[2024-10-26 09:36] VITALS: BP 131/80; PULSE 75; RESP 15; O2SAT 97
== END 2024-10-26 09:48 | disposition home or self-care (01) ==
PROVIDERS: PCP Physician Assistant; Visit Provider Orthopaedic Surgery
PROC: (CPT 64721; principal; 2024-10-26 09:10)
DX: G56.02 Carpal tunnel syndrome, left upper limb (principal); R20.0 Anesthesia of skin; R20.2 Paresthesia of skin; Z98.890 Other specified postprocedural states
CPT/HCPCS: 64721; J0171; J2003; J2004

== ENCOUNTER → 2024-10-26 07:33 | Outpatient (BNV) | payer OTHER, SELFPAY | PROVIDERS: PCP Physician Assistant; Visit Provider Orthopaedic Surgery | DX: G56.02 Carpal tunnel syndrome, left upper limb (principal) | CPT/HCPCS: 64721 ==

== ENCOUNTER 2024-11-10 12:55 | Outpatient (AMB) | payer OTHER, SELFPAY ==
--- NOTE | 2024-11-10 13:10 | MHC.OFFVIS ---
Vital Signs 11/10/24 13:11 Height 5 ft 11 in Weight 274 lb BMI 38.2 Intake Visit Reasons: PO LT CTR 10/26/24 AR Intake Note: Herrera is a 44 year old right hand dominant male who presents today for a post operative visit s/p left carpal tunnel release DOS: 10/26/2024 w/ Dr Serra. Suture removed and steri strips applied. States symptoms gave resolve. Allergies No Known Allergies [No Known Allergies*] Allergy (Verified 11/10/24 13:11) HPI HPI PO LT CTR 10/26/24 AR: Details: Herrera is a 44 year old right hand dominant male who presents today for a post operative visit s/p left carpal tunnel release DOS: 10/26/2024 w/ Dr Serra. Suture removed and steri strips applied. States symptoms gave resolve. No toherb [facility] Surgical History History of lipoma History of eye surgery History of root canal procedure History of wisdom tooth extraction Family History Father Medical history unknown Mother No problems noted. 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 Good APB muscle firing and good finger cross. Vascular: Capillary refill brisk. ROM: Patient can make a fist and extend all their digits. Skin: Well approximated and well-healing incision site noted on the volar L wrist General: No ecchymosis. No erythema or evidence of infection. 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 MD DANDRE Rodriguez/HANH Assessment & Plan Assessment & Plan (1) Bilateral carpal tunnel syndrome: Code(s): G56.03 - Carpal tunnel syndrome, bilateral upper limbs Category: Medical Plan One carpal tunnel syndrome, right Symptoms intermittent, daily, worse at night I educated the patient about the condition. I discussed both operative and nonoperative treatment options. The patient would like to proceed with surgery. The risks and benefits of operative treatment were discussed with the patient and the patient wishes to proceed with surgery. These risks include, but are not limited to, risk of damage to blood vessels, nerves, tendons, infection, recurrence, incomplete relief of preoperative symptoms, persistent pain, possible need for further surgery, and the risks associated with regional blocks and/or anesthesia. Plan is to take the patient to the operating room at some point in the next few weeks for the following procedures: 1. Right carpal tunnel release under local anesthesia All of the preoperative paperwork including the consent was discussed today. All of the patient's questions were answered in the clinic today. The patient understands that they will be in contact with our surgical supply assistant to discuss scheduling their procedure. Patient denies diabetes, blood thinners, asthma, heart issues, lung issues, kidney issues, or current smoking. 2. Carpal tunnel syndrome, left S/p CTR DOS 10/26/24 Patient appears to be recovering well postoperatively Patient is educated about the typical recovery course At this time, patient is informed he will require no acute follow up, as he is recovering well Patient is amenable to this plan Coding Level of Care Code Est Pt Level 4 (92430) Diagnoses Bilateral carpal tunnel syndrome G56.03
[2024-11-10 13:11] VITALS: BMI 38.2
--- OUTSIDE RECORDS SUMMARY | 2024-11-10 14:28 | XMS_ITS | Data Portability ---
Author Organization [place] - [facility], Allergy Address [address] [place] [address] Care Team Providers Care Case Supervisor Name Role Phone YOLANDE RENO Primary Care Provider Assessment Encounter Date Assessment Date Assessment LastModified by Organization Details LastModified Time 09/25/2024 09/25/2024 44-year-old male seen for an opinion regarding left parotid mass. Has been present for several years at least 5 years. 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 Dr. Rutherford or discussed surgical removal but given the state of the world at the time the patient decided to hold off on any intervention. He notes that for the most part it has stayed stable in size. He had 1 episode where he felt the gland was swollen and firm but then went down to this current state which is similar to the way it was in 2020. He had a recent follow-up MRI which showed the lesion to be 1.9 x 1.4 x 2.6 cm which is basically the same size as it was in 2020 with just very slight increase. He has no pain. He did note a loss of sense of smell but no known recent upper respiratory tract infections. MRI scan did not show any significant sinus disease Patient with what appears to be a stable left parotid mass. We reviewed that needle aspiration has some limitations including sampling error. Given the fact the mass has not grown significantly over the last 4+ years, it is reassuring and likely benign. The only way to make a definitive diagnosis would be to have it removed. We again reviewed the risks and benefits. He will come in to discuss things further with Dr. Rutherford. 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 Referral None recorded. Procedures None recorded. Surgeries parotidec amrik (SURG) 2024 025 [email or web address] Not available 10/16/2024 12:22:25 Imaging None recorded. Medication Orders None recorded. Patient TargetsNo targets recorded. Patient InstructionsNo instructions recorded. Reason for Referral None Reported. Results Created Date Observation Date Name Description Value Unit Range Abnormal Flag Note LastModifiedBy Organization Detail LastModifiedTime 09/26/1904/01/2020 MRI, brain + orbit s, w/o contr ast No observ ation record ed. [email or web address] Not Available 09/07 13:17:46 Result Notes None recorded. 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; Note: Date Diagnosed : 04/11/2020 5:21 PM (D11.0) Not Available [facility] 4 02:29:18 Mass of left parotid gland 84250988680 736215 Active 2024 LAVERNE STYLES MD [address] [facility],[place] [address], [place], [address] , [facility] - [facility] 5 09:03:12 Loss of sense of smell 77932393 Active 2024 LAVERNE STYLES MD [address] [facility],[place] [address], [place], [address] , [facility] - [facility] 5 09:03:19 Neoplasm of parotid gland 899952932 Active 2024 AURELOI RUTHERFORD MD [address] [facility],[place] [address], [place], [address] , [facility] - [facility] 5 12:03:40 Problem Notes None recorded. Procedures Surgical History None recorded. Imaging Results Imaging Date Name Status LastModified by Organiz ation Details LastModified Time 04/01/2020 MRI, brain + orbits, w/o contrast completed [email or web address] Information not available 09/26/2024 13:17:46 Procedure Notes None recorded. Medical Equipment None Reported. Allergies No known drug allergies Medications Name Sig Start Date Stop Date Status Note LastModified by Organization Details LastModified Time atorvastatin 20 mg tablet TAKE 1 TABLET BY MOUTH EVERY DAY active Not Available Not Available No t Available mupirocin 2 % topical ointment APPLY TO BIOPSY SITE ON CHEST TWICE DAILY FOR 2 WEEKS active Not Available Not Available No t Available amoxicillin 500 mg-potassium clavulanate 125 mg tablet TAKE 1 TABLET BY MOUTH THREE TIMES A DAY FOR 5 DAYS 09/25 completed Not Available Not Available Not Available cholecalcife rol (vitamin D3) 50 mcg (2,000 unit) capsule TAKE 1 CAPSULE BY MOUTH EVERY DAY active Not Available Not Available No t Available Vitals Date Recorded Body height Body weight Provider Name and Address Organization Details Last Updated DateTime 09/25/2024 180.34 cm 513997.04 g Sarah Hernández [place] - [facility] [place] [facility] 09/25/2024 08:46:21 Date Recorded Body height Body mass index (BMI) Body weight Provider Name and Address Organization Details Last Updated DateTime 10/16/2024 180.34 cm 38.2 kg/m2 472602.31 g Mraitza Rodriguez [place] - [facility] 10/16/2024 11:25:31 Social History None recorded. Functional Status None recorded. Mental Status None recorded. Family History Nothing Reported. Medical History Condition Response Allergies/Hayfever N Heart Problems N Anxiety N Tonsil Infections N Emphysema N Migraines N Thyroid Problems N Glaucoma N Developmental Delay N Depression N COPD N Nasal or Sinus Problems N Anemia N Immune System Disorder N Anesthesia Complications N Heart Attack ([place]) N Other Skin Condition N Diabetes N Rhinitis N Bleeding Disorder N Food Allergy N Hearing Loss N Arthritis N Hyperlipidemia N Cancer N Stroke N Dementia N Nasal polyps N Asthma N Sleep Disorder N High Cholesterol Y GERD/Reflux N Liver Disease N Headaches N Fibromyalgia N Hypertension N Speech Delay N Kidney Disease N Past Encounters Encounter ID Performer Location Encounter Start Date Encounter Closed Date Diagnosis/Indication Diagnosis SNOMED-CT Code Diagnosis ICD10 Code Diagnosis Note [id number] LAVERNE STYLES MD [facility] [address] [address] 09/25/2024 08:42:07 09/25/2024 09:08:47 Mass of left parotid gland 4371133768 9034569 R22.1 Loss of se nse of smell 53930974 R43.0 [id number] AURELIO RUTHERFORD MD [facility] [address] [address] 10/16/2024 11:15:39 10/16/2024 12:02:39 Benign neoplasm of parotid gland 82950802 D11.0 Given it is becoming intermitte ntly painful we discussed excision. The patient is indicated for and a good candidate for parotidect enedelia. I discussed the risks, benefits, and alternativ es to parotidect enedelia with facial nerve dissection . I specifical ly discussed the risk of temporary or permanent facial nerve paralysis. I discussed the risk of gustatory sweating (Jonh syndrome), as well as the risk of first bite syndrome. I discussed the surgical incision as well as the resulting scar and paresthesi a associated with the incision. I discussed the risk of postoperat leeanne bleeding or postoperat leeanne sialocele both requiring surgical drainage. I discussed the need for a drain to be in place after surgery. I discussed the risk of an infection. I discussed the possibilit y of a capsular dissection where the facial nerve is not identified . I discussed this approach would be determined interopera tively and only used if deemed safe. The patient understand s the risk and like to proceed. We will schedule surgery at a mutually convenient time. I spent [address] images and recent MRI images. Looks superficia l at tail of gland. Neoplasm o f parotid gland 704975380 D49.0 Health Concerns Section Related Observation LastModified by Organization Detai ls LastModified Time None Recorded Concern Status LastModified by Organization Details LastModified Time None Recorded Advance Directives Directive None Recorded Payers Encounter Date Sequence Insurance Name Policy Number Policy Preston Covered Member ID Preston Member ID Guarantor Name 09/25/2024 1 [facility] [id number] Herrera Stuart [id number] Herrera Stuart 10/16/2024 1 [facility] [id number] Herrera Stuart [id number] Herrera Stuart Notes Date Note Type Note Provider Name and Address Organization Details Recorded Time 09/25/2024 text/html 44-year-old male seen for an opinion regarding left parotid mass. Has been present for several years at least 5 years. 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 Dr. Mistryer or discussed surgical removal but given the state of the world at the time the patient decided to hold off on any intervention. He notes that for the most part it has stayed stable in size. He had 1 episode where he felt the gland was swollen and firm but then went down to this current state which is similar to the way it was in 2020. He had a recent follow-up MRI which showed the lesion to be 1.9 x 1.4 x 2.6 cm which is basically the same size as it was in 2020 with just very slight increase. He has no pain. He did note a loss of sense of smell but no known recent upper respiratory tract infections. MRI scan did not show any significant sinus disease LAVERNE SORIANO MD [address] [place] [address], [phone], [facility] - [facility] 09/25/2024 09:05:32 10/16/2024 text/html Presents for parotid tumor. Saw Dr. Asif in September. He has had 3 mild episodes of soreness where the tumor has become inflamed. Currently it is soft and less painful. Last seen by me in 2019. Had an US 03/2020 showed a 2.4cm hypoechoic mass in the left mandibular region. 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 Neck CT 03/2020 showed 1.6x1.1x2.2 cm parotid lesion. He has never smoked. There is no associated pain. He denies hoarseness, ear pain, and difficulty swallowing. Had an MRI 09/2023 which showed a [id number] left parotid tumor. It had changed character and became more firm and was sore. Now it is softer again. AURELIO RUTHERFORD MD [address] [place] [address], [place], [address], [place] - [facility] 10/16/2024 12:05:13
--- OUTSIDE RECORDS SUMMARY | 2024-11-10 14:28 | XMS_ITS | Data Portability ---
Author Organization ANANTH [facility] [employer] [facility] [id number] Address [address] [place] [address] Assessment No assessment recorded. Plan of Treatment Reminders Order Date Submit Date Provider Last Modified By Organization Details Last Modified Time Details Appointments None recorded. Lab None recorded. Referral None recorded. Procedures None recorded. Surgeries None recorded. Imaging None recorded. Medication Orders prednisone [address] [id number], [address] [place], [address], 09:58:58 albuterol sulfate HFA 90 mcg/actuati on aerosol inhaler [address] [id number], [address] [place], [address], 09:58:58 Patient TargetsNo targets recorded. Patient Instructions Encounter Date Encounter Id Patient Instructions Last Modified By Organization Details Last Modified Time 08/09/2022 [id number] cough: care instructions [email or web address] Not available 08/09/2022 09:58:56 Acute bronchitis is [...] Pain 3. Wheezing 4. Coughing up Blood [email or web address] Not available 08/09/2022 09:58:07 Reason for Referral None Reported. Problems Name Problem SNOMED Code Status Onset Date Resolution Date Notes Provider Name and Address Organization Details Recorded Time Hypercholestero lemia 84990138 Active 2021 ANANTH Drake - [facility] [...] Last Updated DateTime 180.34 cm 41.1 kg/m2 325866. 75 g 96 % 96 % 74 /min 18 /min 98.1 [degF] 138 mm[Hg] 89 mm[Hg] JIGAR ANY [facility] 09:18:51 Social History Question Answer Notes LastModified by Skipjumpat ion Details LastModified Time Tobacco Smoking Status Never Smoker JIGAR ANYKEILY mcintosh, PA [facility] [facility] 08/09/2022 09:15:50 What Is Your Level [...] (COVID-19) vaccine, UNSPECIFIED 09/06/2021 completed ANANTH Drake [facility] 08/09/2022 09:14:59 Past Encounters Encounter ID Performer Location Encounter Start Date Encounter Closed Date Diagnosis/Indication Diagnosis SNOMED-CT Code Diagnosis ICD10 Code Diagnosis Note [id number] [address] [address] 07/05/2022 08:31:22 07/05/2022 09:14:54 [id number] ANANTH STEVE [address] [address] 08/09/2022 08:17:21 08/09/2022 10:49:30 Acute bronchitis 85060948 J20.9 Health Concerns Section Related Observation LastModified by Organization Detai ls LastModified Time None Recorded Concern Status LastModified by Organization Details LastModified Time None Recorded Advance Directives Directive None Recorded Payers Encounter Date Sequence Insurance Name Policy Number Policy Preston Covered Member ID Preston Member ID Guarantor Name 07/05/2022 1 [facility] [id number] Herrera Stuart [id number] Herrera Stuart 08/09/2022 1 [facility] [id number] Herrera Stuart [id number] Herrera Stuart Notes Date Note Type Note [...] or asthma history. ANANTH STEVE [address] [place], [address], [place] - [facility] 08/09/2022 10:02:07
== END 2024-11-10 13:36 | disposition home or self-care (01) ==
PROVIDERS: PCP Physician Assistant
DX: G56.03 Carpal tunnel syndrome, bilateral upper limbs (principal)
CPT/HCPCS: 99024

== ENCOUNTER → 2024-11-10 12:55 | Outpatient (BNVA) | payer OTHER, SELFPAY | PROVIDERS: PCP Physician Assistant ==

== ENCOUNTER 2025-01-24 06:44 | Day surgery (SDC) | payer OTHER, SELFPAY ==
--- OUTSIDE RECORDS SUMMARY | 2024-12-08 07:53 | XMS_ITS | Data Portability ---
Author Organization [place] - [facility], Allergy Address [address] [place] [address] Care Team Providers Care Air Intelligence Officer Name Role Phone YOLANDE RENO Primary Care Provider [phone] Assessment Encounter Date Assessment Date Assessment LastModified [...] Organization Details Last Modified Time Details Appointments SURGERY 210 2024 09:00A M AURELIO Hess MD Not available Not available Not available Post Op 2024 03:30P M MIRTA LIEBERMAN PA-C Not available Not available Not available Post Op 2024 10:15A M MIRTA LIEBERMAN PA-C Not available Not available Not available Post Op 30 2024 08:30A Teresa Hess MD Not available Not available Not [...] contr ast No observ ation record ed. [email or web address] Not Available 09/07 13:17:46 Result Notes None recorded. Problems Name Problem SNOMED Code Status Onset Date Resolution Date Notes Provider Name and Address Organization Details Recorded Time Mass of neck 363119589 Active 2019 Localized swelling, mass and lump, neck; Note: Date Diagnosed : 03/14/2020 11:40 AM (R22.1) Not Available [facility] 4 02:29:07 Neck swelling 747616298 Active 2019 Localized swelling, mass and lump, neck; Note: Date Diagnosed : 03/14/2020 11:40 AM (R22.1) Not Available [facility] 4 02:29:07 Benign neoplasm of parotid gland 55212453 Active 2019 Benign neoplasm of parotid gland; Note: Date Diagnosed : 04/11/2020 5:21 PM (D11.0) Not Available [facility] 4 02:29:18 Mass of left parotid gland 20139635587 367781 Active 2024 LAVERNE STYLES MD [address] [facility],[place] [address], [place], [address] , [facility] - [facility] 5 09:03:12 Loss of sense of smell 17408200 Active 2024 LAVERNE STYLES MD [address] [facility],[place] [address], [place], [address] , [facility] - [facility] [place] 5 09:03:19 Neoplasm of parotid gland 155629806 Active 2024 AURELIO RUTHERFORD MD [address] [facility],[place] [address], [place], [address] , [facility] - [facility] 5 12:03:40 Problem Notes None recorded. Procedures Surgical History None recorded. Imaging Results Imaging Date Name Status LastModified by Organiz ation Details LastModified Time 04/01/2020 MRI, brain + orbits, w/o contrast completed [email or web address] Information not available 09/26/2024 13:17:46 Procedure Notes None recorded. Medical Equipment None Reported. Allergies No known drug allergies Medications Name Sig Start Date Stop Date Status Note LastModified by Organization Details LastModified Time atorvastatin 20 mg tablet TAKE 1 TABLET BY MOUTH DAILY active Not Available Not Available No t Available oxycodone-ac etaminophen 5 mg-325 mg tablet TAKE 1 TABLET BY MOUTH EVERY 6 HOURS NEEDED FOR SEVERE PAIN active Not Available Not Available No t [...] and Address Organization Details Last Updated DateTime 11/24/2024 180.34 cm 38.2 kg/m2 400777.31 g Mike Shine [place] - [facility] 11/24/2024 08:20:00 Date Recorded Body height Body weight Provider Name and Address Organization Details Last Updated DateTime 09/25/2024 180.34 cm 715616.04 g Sarah Edgar [place] - [facility] 09/25/2024 08:46:21 Date Recorded Body height Body mass index (BMI) Body weight Provider Name and Address Organization Details Last Updated DateTime 10/16/2024 180.34 cm 38.2 kg/m2 126210.31 g Maritzakim Rodriguez [place] - [facility] 10/16/2024 11:25:31 Social History None recorded. Functional Status None recorded. Mental Status None recorded. Family History Nothing Reported. Medical History Condition Response Allergies/Hayfever N Heart Problems N Anxiety N Tonsil Infections N Emphysema N Migraines N Thyroid Problems N Glaucoma N Depression N COPD N Developmental Delay N Nasal or Sinus Problems N Anemia N Immune System Disorder N Anesthesia Complications N Heart Attack ([place]) N Other Skin Condition N Diabetes N Rhinitis N Bleeding Disorder N Food Allergy N Arthritis N Hearing Loss N Hyperlipidemia N Cancer N Stroke N Dementia N Nasal polyps N Asthma N High Cholesterol Y Sleep Disorder N GERD/Reflux N Liver Disease N Headaches N Fibromyalgia N Hypertension N Speech Delay N Kidney Disease N Past Encounters Encounter ID Performer Location Encounter Start Date Encounter Closed Date Diagnosis/Indication Diagnosis SNOMED-CT Code Diagnosis ICD10 Code Diagnosis Note [id number] LAVERNE STYLES MD [facility] [address] [address] 09/25/2024 08:42:07 09/25/2024 09:08:47 Mass of left parotid gland 9405897433 1904180 R22.1 Loss of se nse of smell 01367438 R43.0 [id number] AURELIO RUTHERFORD MD [facility] on [address] [place] [address] 10/16/2024 11:15:39 10/16/2024 12:02:39 Benign neoplasm of parotid gland 81153598 D11.0 Given it is becoming intermitte ntly [...] of gland. Neoplasm o f parotid gland 227628839 D49.0 [id number] AURELIO RUTHERFORD MD [facility] on [address] [facility] [place] [address] 11/24/2024 08:17:56 11/24/2024 08:40:23 Benign neoplasm of parotid gland 26948886 D11.0 Given it is becoming intermitte ntly painful and to clarify the pathology we discussed planned excision. The patient is indicated for and a good candidate for parotidect enedelia. We again discussed the risks, benefits, and alternativ es [...] Looks superficia l at tail of gland. Health Concerns Section Related Observation LastModified by Organization Yudi quezada LastModified Time None Recorded Concern Status LastModified by Organization Details LastModified Time None Recorded Advance Directives Directive None Recorded Payers Encounter Date Sequence Insurance Name Policy Number Policy Preston Covered Member ID Preston Member ID Guarantor Name 09/25/2024 1 [facility] [employer] [id number] Herrera Stuart [id number] Herrera Young Narciso 10/16/2024 1 [employer] [id number] Herrera Stuart [id number] Herrera Neffge 11/24/2024 1 [employer] [id number] Herrera Stuart [id number] Herrera Young [place] Notes Date Note Type Note Provider Name [...] any significant sinus disease LAVERNE SORIANO MD [address] [place] [address], [place], [address], [place] - [facility] 09/25/2024 09:05:32 10/16/2024 text/html Presents for parotid [...] Had an MRI 09/2023 which showed a [id number] left parotid tumor. It had changed character and became more firm and was sore. Now it is softer again. AURELIO RUTHERFORD MD [address] [facility],[address], [address], [place] - [facility] 10/16/2024 12:05:13 11/24/2024 text/html Presents for parotid tumor. Has had episodes of pain but none recent. He feels it is smaller and less inflamed than it used to be. Imaging Hx:Last seen by me in 2019. Had an US 03/2020 showed a 2.4cm hypoechoic mass in the left mandibular region. 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 Neck CT 03/2020 showed 1.6x1.1x2.2 cm parotid lesion. He has never smoked. There is no associated pain. He denies hoarseness, ear pain, and difficulty swallowing. Had an MRI 09/2023 which showed a [id number] left parotid tumor. It had changed character and became more firm and was sore. Now it is softer again. AURELIO RUTHERFORD MD [address] [facility],[address], [address], [place] - [facility] 11/24/2024 08:38:38
--- OUTSIDE RECORDS SUMMARY | 2024-12-08 07:53 | XMS_ITS | Data Portability ---
Author Organization [employer] [facility] [address] Address [address] [place] [address] Assessment No assessment recorded. Plan of Treatment Reminders Order Date Submit Date Provider Last Modified By Organization Details Last Modified Time Details Appointments None recorded. Lab None recorded. Referral None recorded. Procedures None recorded. Surgeries None recorded. Imaging None recorded. Medication Orders prednisone 10 mg tablet 2021 [facility]/Pharmacy #[id number], [address] [place], [address], 09:58:58 albuterol sulfate HFA 90 mcg/actuati on aerosol inhaler 2021 [facility]/Pharmacy #[id number], [address] [place], [address], 09:58:58 Patient TargetsNo targets recorded. Patient Instructions Encounter Date Encounter Id Patient Instructions Last Modified By Organization Details Last Modified Time 08/09/2022 [id number] cough: care instructions [email or web address] Not available 08/09/2022 09:58:56 Acute bronchitis is [...] Address Organization Details Recorded Time Hypercholestero lemia 21897238 Active 2021 ANANTH Drake - [facility] [...] Last Updated DateTime 180.34 cm 41.1 kg/m2 611909. 75 g 96 % 96 % 74 /min 18 /min 98.1 [degF] 138 mm[Hg] 89 mm[Hg] [facility]IGAR ANY [facility] 09:18:51 Social History Question Answer Notes LastModified by The Bully Trackerat ion Details LastModified Time Tobacco Smoking Status Never Smoker JIGAR ANYKEILY mcintosh, PA [facility] 08/09/2022 09:15:50 What Is Your Level [...] SNOMED-CT Code Diagnosis ICD10 Code Diagnosis Note [id number] [id number] [address] 07/05/2022 08:31:22 07/05/2022 09:14:54 [id number] ANANTH STEVE [address] [address] 08/09/2022 08:17:21 08/09/2022 10:49:30 Acute bronchitis 11815277 J20.9 Health Concerns Section Related Observation LastModified by Organization Detai ls LastModified Time None Recorded Concern Status LastModified by Organization Details LastModified Time None Recorded Advance Directives Directive None Recorded Payers Encounter Date Sequence Insurance Name Policy Number Policy Preston Covered Member ID Preston Member ID Guarantor Name 07/05/[address] [facility] [id number] Herrera Stuart [id number] Herrera Stuart 08/09/[address] [facility] [id number] Herrera Stuart [id number] Herrera Stuart Notes Date Note Type Note [...] ANANTH STEVE [address] [place], [address], [place] - [facility] 08/09/2022 10:02:07
[2025-01-24 06:53] VITALS: BP 126/81; PULSE 79; RESP 16; TEMP 36.1; O2SAT 96; BMI 38.2
--- NOTE | 2025-01-24 07:39 | MHC.SHP ---
Pre-Procedural Eval Section A - 24 Hr Update-Section A only Date of Service: 01/24/25 The patient is an INPATIENT: No Changes since office visit: No Cold of Flu in the past 2 weeks, No New Medical Problems, No Changes in Medication and No Patient answered all questions The patient has been examined within 24 hours of the surgical procedure. The History & Physical has been completed within 30 days and I have reviewed it.: Yes Section B - Complete if H&P > 30 days Chief Complaint: Carpal tunnel syndrome, right upper limb Allergies: Allergies Allergy/AdvReac Type Severity Reaction Status Date / Time No Known Allergies Allergy Verified 11/10/24 13:11 [No Known Allergies*] Plan Diagnosis/Plan: Unchanged I have reviewed the history and physical and performed a pertinent physical examination on my patient. No changes have occurred unless specified. Time Spent With Patient Time: Total time managing care of this patient today ____ minutes.
--- NOTE | 2025-01-24 07:40 | W.PM.OPN ---
Operative Note Operative Note Date of Service: 01/24/25 Narrative: Preop diagnosis: 1. Right Carpal tunnel syndrome Postop diagnosis: same Procedure: 1. Right Carpal tunnel release Surgeon: Dalia Serra MD Inside Sales Executive: Eliseo WADSWORTH Anesthesia: local block using 1% lidocaine with epinephrine Findings: Thickened transverse carpal ligament. EBL: Less than 5 mL Specimens: None Complications: None Disposition: Brought to recovery room in stable condition Plan: Follow-up for 10-14 days for wound check and suture removal Indications: The patient is 44 years old, with right carpal tunnel syndrome that has been unresponsive to nonoperative management. The risks and benefits of operative treatment including but not limited to risk of damage to blood vessels, nerves, tendons, infection, persistent pain, persistent symptoms, or possible need for additional surgery were discussed with the patient and the patient wishes to proceed with surgery. Procedure: Once consent was obtained a local block was performed using a combination of 1% lidocaine with epinephrine. The patient was then brought back to the operating suite and placed on the operative table in supine position. The right upper extremity was prepped and draped in a standard surgical fashion. Once assured that we had a good block, a 2.0 cm longitudinal incision was made centered over the carpal tunnel. The incision was made through the skin to the subcutaneous tissues using a #15 blade. Dissection was made down to the level of the transverse carpal ligament with care being taken to protect the palmar cutaneous nerve. Once the transverse carpal ligament was clearly visualized, a longitudinal incision was made in the transverse carpal ligament 1st using a #15 blade, then using tenotomy scissors under direct visualization. Care was taken to look for and protect the motor branch of the median nerve when seen in this area. Once satisfied with our carpal tunnel release the wound was copiously irrigated with normal saline and hemostasis was obtained with a brief period of local pressure. The skin edges were reapproximated with some 5.0 nylon suture material and a sterile dressing was applied. The patient appears to have tolerated the procedure well and with no complications. All digits were well vascularized at the conclusion of the case.
[2025-01-24 08:41] VITALS: BP 139/86; PULSE 71; RESP 15; O2SAT 96
== END 2025-01-24 08:46 | disposition home or self-care (01) ==
PROVIDERS: PCP Physician Assistant; Visit Provider Orthopaedic Surgery
PROC: (CPT 64721; principal; 2025-01-24 08:00)
DX: G56.01 Carpal tunnel syndrome, right upper limb (principal); Z98.890 Other specified postprocedural states
CPT/HCPCS: 64721; J0171; J2003; J2004

== ENCOUNTER → 2025-01-24 06:44 | Outpatient (BNV) | payer OTHER, SELFPAY | PROVIDERS: PCP Physician Assistant; Visit Provider Orthopaedic Surgery | DX: G56.01 Carpal tunnel syndrome, right upper limb (principal) | CPT/HCPCS: 64721 ==

== ENCOUNTER 2025-02-07 09:12 | Outpatient (AMB) | payer OTHER, SELFPAY ==
--- NOTE | 2025-02-07 09:25 | MHC.OFFVIS ---
Vital Signs 02/07/25 09:28 Height 5 ft 11 in Weight 269 lb BMI 37.5 Handedness Right Intake Visit Reasons: PO RT CTR 01/24/25 AR Intake Note: Herrera is a 44 year old right hand dominant male who presents today for a post operative visit status post right carpal tunnel release DOS: 01/24/[address] Dalia Serra. Patient reports he feels the numbness and tingling in his 2nd, 3rd, and 4th right digits has resolved. Reports he had no drainage. Denies pain. Sutures removed and steri streps applied. Allergies No Known Allergies [No Known Allergies*] Allergy (Verified 02/07/25 09:29) HPI HPI PO RT CTR 01/24/25 AR: Details: Herrera is a 44 year old right hand dominant male who presents today for a post operative visit status post right carpal tunnel release DOS: 01/24/[address] Dalia Serra. Patient reports he feels the numbness and tingling in his 2nd, 3rd, and 4th right digits has resolved. Reports he had no drainage. Denies pain. Sutures removed and steri streps applied. [facility] Surgical History History of lipoma History of eye surgery History of root canal procedure History of wisdom tooth extraction Family History Father Medical history unknown Mother No problems noted. 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 Good APB muscle firing and good finger cross. Vascular: Capillary refill brisk. ROM: Patient can make a fist and extend all their digits. Skin: Well approximated and well-healing incision site noted on the volar R wrist General: No ecchymosis. No erythema or evidence of infection. Assessment & Plan Assessment & Plan (1) Bilateral carpal tunnel syndrome: Code(s): G56.03 - Carpal tunnel syndrome, bilateral upper limbs Category: Medical Plan 2. Carpal tunnel syndrome, right S/p CTR DOS 01/24/25 Patient appears to be recovering well postoperatively Patient is educated about the typical recovery course At this time, patient is informed he will require no acute follow up, as he is recovering well Patient is amenable to this plan Coding Level of Care Code Global (03104) Diagnoses Bilateral carpal tunnel syndrome G56.03
[2025-02-07 09:28] VITALS: BMI 37.5
--- OUTSIDE RECORDS SUMMARY | 2025-02-07 09:39 | XMS_ITS | Data Portability ---
Author Organization [place] - [facility], Allergy Address [address] [place] [address] Care Team Providers Care Associate Biological Sales Name Role Phone YOLANDE RENO Primary Care [...] parotid mass maureen Not available 09/25/2024 09:05:14 02/05/2025 02/05/2025 The patient is doing well following parotidectomy. The DIANNE drain was removed today without difficulty. The patient was instructed to call the office for increased swelling, fever, tenderness, or drainage. Wound care was discussed. I recommended avoidance of strenuous activity, heavy lifting or straining for 2 weeks. Pathology is pending and will be followed. Finish antibiotics if prescribed and follow up as scheduled. All questions were answered. [email or web address] Not available 02/05/2025 16:11:27 Plan of Treatment Reminders Order Date Submit Date Provider Last Modified By Organization Details Last Modified Time Details Appointments Post Op 2024 09:00A M ABIMAEL CASTRO PA-C Not available Not available Not available Post Op 2024 10:15A M MIRTA LIEBERMAN PA-C Not available Not available Not available Post Op 30 2024 08:30A M AURELIO Hess MD [...] Abnormal Flag Note LastModifiedBy Organization Detail LastModifiedTime 09/26/19 25 04/01/2020 MRI, brain + orbit s, w/o contr ast No observ ation record ed. [email or web address] Not Available 09/07 13:17:46 02/02/20 25 09/10/2024 MRI, head + neck + orbit s, w/wo contr ast No observ ation record ed. [email or web address] Not Available 01/05 09:35:43 Result Notes None recorded. 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; Note: Date Diagnosed : 04/11/2020 5:21 PM (D11.0) Not Available [facility] 4 02:29:18 Mass of left parotid gland 27268656700 767485 Active 2024 LAVERNE STYLES [facility] [address] [facility] [place] [address], [place], [address] , [place] - [facility] 5 09:03:12 Loss of sense of smell 20554908 Active 2024 LAVERNE STYLES MD [address] [place], [place] [address]on [place] [address], [place], [address] , [place] - [facility] 5 09:03:19 Neoplasm of parotid gland 484540445 Active 2024 AURELIO RUTHERFORD MD [address] [facility] [place] [address], [place], [address] , [place] - [facility] 5 12:03:40 Problem Notes None recorded. Procedures Surgical History Date Name Laterality Status Provider Name and Address Organization Details Recorded Time 02/03/20 25 partial parotidectomy completed AURELIO RUTHERFORD MD [address] [facility] [place] [address], [place], [address], [facility] - [facility] 02/02/2025 13:52:32 Imaging Results None recorded. Procedure Notes None recorded. Medical Equipment None Reported. Allergies No known drug allergies Medications Name Sig Start Date Stop Date Status Note LastModified by Organization Details LastModified Time atorvastatin 20 mg tablet TAKE 1 TABLET BY MOUTH DAILY active Not Available Not Available No t Available hydrocodone 5 mg-acetamino phen 325 mg tablet TAKE 1 TABLET BY MOUTH EVERY 6 HOURS NEEDED FOR PAIN 02/05 completed Not Available Not Available Not Available amoxicillin 500 mg tablet TAKE 1 TABLET BY MOUTH TWICE A DAY 02/05 completed Not Available Not Available Not Available oxycodone-ac etaminophen 5 mg-325 mg tablet TAKE 1 TABLET BY MOUTH EVERY 6 HOURS NEEDED FOR SEVERE PAIN 02/05 completed Not Available Not Available Not Available mupirocin 2 % topical ointment APPLY TO BIOPSY SITE ON CHEST TWICE DAILY FOR 2 WEEKS active Not Available Not Available No t Available amoxicillin 875 mg-potassium clavulanate 125 mg tablet TAKE 1 TABLET BY MOUTH EVERY 12 HOURS FOR 7 DAYS 02/05 completed Not Available Not Available Not Available amoxicillin 500 mg-potassium clavulanate 125 mg [...] Details Last Updated DateTime 09/25/2024 180.34 cm 374776.04 g Sarah Hernández [place] - [facility] 09/25/2024 08:46:21 Date Recorded Body height Body mass index (BMI) Body weight Provider Name and Address Organization Details Last Updated DateTime 10/16/2024 180.34 cm 38.2 kg/m2 450167.31 g Maritza Rodriguez [place] - [facility] 10/16/2024 11:25:31 Date Recorded Body height Body mass index (BMI) Body weight Provider Name and Address Organization Details Last Updated DateTime 11/24/2024 180.34 cm 38.2 kg/m2 879419.31 g Mike Shine [place] - [facility] 11/24/2024 08:20:00 Date Recorded Body height Body mass index (BMI) Body weight Provider Name and Address Organization Details Last Updated DateTime 02/05/2025 180.34 cm 38.1 kg/m2 150710.72 g Dimple Hyman [place] - [facility] 02/05/2025 15:17:31 Social History None recorded. Functional Status None recorded. Mental Status None recorded. Family History Nothing Reported. Medical History Condition Response Allergies/Hayfever N Heart Problems N Anxiety N Tonsil Infections N Emphysema N Migraines N Thyroid Problems N Glaucoma N Depression N COPD N Developmental Delay N Nasal or Sinus Problems N Anemia N Immune System Disorder N Anesthesia Complications N Heart Attack ([place]) N Other Skin Condition N Diabetes N Rhinitis N Bleeding Disorder N Food Allergy N Arthritis N Hearing Loss N Hyperlipidemia N Cancer N Stroke N Dementia N Nasal polyps N Asthma N Sleep Disorder N GERD/Reflux N High Cholesterol Y Liver Disease N Headaches N Fibromyalgia N Hypertension N Speech Delay N Kidney Disease N Past Encounters Encounter ID Performer Location Encounter Start Date Encounter Closed Date Diagnosis/Indication Diagnosis SNOMED-CT Code Diagnosis ICD10 Code Diagnosis Note [id number] LAVERNE STYLES MD [facility] [address] [place] [address] 09/25/2024 08:42:07 09/25/2024 09:08:47 Mass of left parotid gland 8852938130 0258563 R22.1 Loss of se nse of smell 42151975 R43.0 [id number] AURELIO RUTHERFORD MD [facility] [address] [address] 10/16/2024 11:15:39 10/16/2024 12:02:39 Benign neoplasm of parotid gland 57289847 D11.0 Given it is becoming intermitte ntly [...] of gland. Neoplasm o f parotid gland 156814853 D49.0 [id number] AURELIO RUTHERFORD MD [facility] on [address] [place] [address] 11/24/2024 08:17:56 11/24/2024 08:40:23 Benign neoplasm of parotid gland 02930760 D11.0 Given it is becoming intermitte ntly [...] Looks superficia l at tail of gland. [id number] MIRTA LIEBERMAN PA-C [facility] [address] [place] [address] 02/05/2025 15:10:23 02/05/2025 15:52:02 Benign neoplasm of parotid gland 07211834 D11.0 Postoperative visit 1488 81852 Z48.89 Health Concerns Section Related Observation LastModified by Organization Detai ls LastModified Time None Recorded Concern Status LastModified by Organization Details LastModified Time None Recorded Advance Directives Directive None Recorded Payers Insurance Date Sequence Insurance Name Policy Number Policy Preston Covered Member ID Preston Member ID Guarantor Name 02/05/2025 1 [employer] [id number] Herrera Stuart [id number] Herrera Stuart Notes Date Note Type Note [...] any significant sinus disease LAVERNE SORIANO MD [address] [facility], [address], [place] - [facility] 09/25/2024 09:05:32 10/16/2024 text/html Presents for par otid tumor. Saw Dr. Asif in September. He [...] Had an MRI 09/2023 which showed a [id number] left parotid tumor. It had changed character and became more firm and was sore. Now it is softer again. AURELIO RUTHERFORD MD [address] [facility] [address], [place], [address], [place] - [facility] 10/16/2024 12:05:13 11/24/2024 text/html Presents for par otid tumor. Has had episodes of pain but [...] Had an MRI 09/2023 which showed a [id number] left parotid tumor. It had changed character and became more firm and was sore. Now it is softer again. AURELIO RUTHERFORD MD [address] [place] [address], [address], [place] - [facility] 11/24/2024 08:38:38 02/05/2025 text/html 44-year-old male presents status post left parotidectomy with Dr. Rutherford on 02/02. He is doing well postoperatively without concerns. DIANNE with about 10 cc of drainage in 24 hours. FNA consistent with Warthin. OLLIE VELA MD [address] [place] [address],[address], [address], [place] - [facility] 02/05/2025 18:08:23
== END 2025-02-07 09:45 | disposition home or self-care (01) ==
LOC: HO.HOS 09:16
PROVIDERS: PCP Physician Assistant
DX: G56.03 Carpal tunnel syndrome, bilateral upper limbs (principal)
CPT/HCPCS: 99024

== ENCOUNTER → 2025-02-07 09:12 | Outpatient (BNVA) | payer OTHER, SELFPAY | PROVIDERS: PCP Physician Assistant ==

== ENCOUNTER 2025-05-09 06:07 | Outpatient (REF) | payer OTHER, SELFPAY ==
--- OUTSIDE RECORDS SUMMARY | 2025-05-09 06:09 | XMS_ITS | Patient Health Record ---
Author Organization [facility] Address [address] [place] [address] Care Team Providers Care Grey Tender Name Role Phone Slava Horne MD Primary Care Provider Avery Hung Unavailable [phone] Aure Kincaid Unavailable Unavailable Reason For Referral No Information Medications Medication SIG (Take, Route, Frequency, Duration) Notes Start Date End Date Status Vitamin D3 Complete - as directed Orally Active Multivitamin Adults 50+ - as directed Orally Active Fish Oil 1000 MG 1 capsule Orally Onc e a day; Duration: 30 day(s) Active Atorvastatin Calcium 20 MG 1 tablet Oral ly Once a day; Duration: 30 day(s) Active Social History Tobacco Use: Social History Observation Description Date Details (start date - stop date) Never Smoker NA - NA Tobacco Use/Smoking Question Answer Notes Are you a: nonsmoker Additional Findings: Tobacco Non-User Current no n-smoker Alcohol Screen Question Answer Notes Did you have a drink contain ing alcohol in the past year? Yes How often did you have a dri nk containing alcohol in the past year? 2 to 4 times a month (2 points) Points 2 Interpretation Negative Tobacco use other than smoking: Question Answer Notes Are you an other tobacco user? No Plan Of Treatment No Information Insurance Providers Payer Name Payer Address Payer Phone Subscriber Number Group Number Insured Name Patient Relationship to Insured Coverage Start Date Coverage End Date [facility] [address] [facility] [id number] Herrera Stuart Self - patient is the insured Medical (General) History Medical History History ICD Code Cervical radiculopathy Vitamin D deficiency Mixed Hperlipidemia IFG Tinea versicolor Multiple Benign Nevi Chicken pox Surgical History Surgery Date(Month/Year) Tooth extraction 03/2019 root canal 2017 Right axilla lipoma 08/2017 tooth implant Eye lasix 12/2018
--- OUTSIDE RECORDS SUMMARY | 2025-05-09 06:09 | XMS_ITS | Encounter Summary ---
Author Organization [facility] Address [address] [facility] [address] [place] [address] Phone Care Team Providers Care Patrol Captain Name Role Phone Romeo Bass Primary Care Provider + Encounter Details Date Type Department Care Team ([facility] st Contact Info) Description 02/02/2025 Procedure Pass OR Admitting Dept - Virtual Department [address] [place] [address] Social History Tobacco Use Types Packs/Day Years Used Date Smoking Tobacco: Never Smokeless Tobacco: Never Alcohol Use Standard Drinks/Week Comments Yes 0 (1 standard drink = 0.6 oz pur e alcohol) couple a month at most Education Answer Date Recorded Are you interested in more education? Not on nathalia e 01/01/2023 Are you concerned about learning? Not on file 01/01/2023 No 01/01/2023 No 01/01/2023 Digital Access Answer Date Recorded No 02/01/2023 No 02/01/2023 Reliable internet access at home? Not on file 02/01/2023 Device with a working camera? Not on file Intimate Partner Violence Answer Date R ecorded Are you denied basic needs s uch as food, clothing, or medical care? No 02/02/2025 In the past 12 months have y ou been in a relationship with a person who hurts, threatens, or tries to control you? No 02/02/2025 Are you denied basic needs s uch as food, clothing, or medical care? No 02/02/2025 In the past 12 months have y ou been in a relationship with a person who hurts, threatens, or tries to control you? No 02/02/2025 Sex and Gender Information Value Date Recorded Sex Assigned at Not on file Legal Sex Male 10:29 PM EDT Gender Identity Not on file Sexual Orientation Not on file documented as of this encounter Plan of Treatment Not on file documented as of this encounter Visit Diagnoses Not on filedocumented in this encounter Care Teams Patrol Captain Relationship Specialty Start Date End Date Romeo Bass PA [address] [place] [address] PCP - General Physician Marine Cargo Surveyor 01/22/25 documented as of this encounter Additional Source Comments The information contained in this document represents components of the legal health record. It is not the complete legal health record.[facility]
--- OUTSIDE RECORDS SUMMARY | 2025-05-09 06:09 | XMS_ITS | Clinical Summary ---
Author Organization [facility] Address [address] [facility] [address] [place] [phone] Phone Care Team Providers Care Nut Grader Name Role Phone Romeo Bass Primary Care Provider + Allergies No known active allergies Medications Medication-Free Text vitamin D Active multivit-minera ls/ferrous fum (MULTI VITAMIN ORAL) Active atorvastatin (LIPITOR) 10 MG tablet Take 10 mg by mouth daily. Active semaglutide 0.25 mg/0.05 mL Syrg Inject under the skin. Active atorvastatin (LIPITOR) 20 MG tablet Take 1 tablet by mouth every morning. 11/07/2024 Active Active Problems No known active problems Social History Tobacco Use Types Packs/Day Years Used Date Smoking Tobacco: Never Smokeless Tobacco: Never Tobacco Cessation:Counseling Given: Not Answered Alcohol Use Standard Drinks/Week Comments Yes 0 [...] on file Sexual Orientation Not on file Last Filed Vital Signs Vital Sign Reading Time Taken Comments Blood Pressure 159/84 02/02/2025 3:57 PM EDT Pulse 89 02/02/2025 3:57 PM EDT Temperature 36.1 C (97 F) 02/02/2025 3:57 PM EDT Respiratory Rate 18 02/02/2025 3:57 PM EDT Oxygen Saturation 96% 02/02/2025 3:57 PM EDT Inhaled Oxygen Concentration - - Weight 122.5 kg (270 lb) 02/02/2025 7:20 AM EDT Height 180.3 cm (5' 11 ) 02/02/2025 7:20 AM EDT Body Mass Index 37.66 02/02/2025 7:20 AM EDT Plan of Treatment Health Maintenance Due Date Last Done Comments LIPID PANEL 1981 DEPRESSION SCREENING 1993 HEPATITIS C SCREENING 1999 HIV ONE-TIME SCREENING (18-65 YEARS) 1999 SCREENING FOR DIABETES 02/22/2016 INFLUENZA VACCINE (#1) 2025 , 06/25/2023, 06/19/2022, Additional history exists Adult Td,Tdap Booster 08/29/2028 08/29/2018 , 08/29/2018, 08/21/2015 COVID-19 VACCINE Completed 05/12/2024, , 06/19/2022, Additional history exists HEPATITIS A VACCINES Aged Out 01/11/2025 No long er eligible based on patient's age to complete this topic SMOKING STATUS SCREENING (Once After 26 Yrs) Completed 02/02/2025 HIB VACCINES Aged Out No longer eligi ble based on patient's age to complete this topic MENINGOCOCCAL VACCINES (ACWY) Aged Out No longer eligible based on patient's age to complete this topic MENINGOCOCCAL VACCINES (B) Aged Out N o longer eligible based on patient's age to complete this topic PNEUMOCOCCAL VACCINES (0-49 years) Aged Out No longer eligible based on patient's age to complete this topic Medical Devices Not on file Insurance CIGNA PPO CIGNA PPO CIGNA PPO Member Subscriber Plan / Payer (Ef fective 2018-Present) Name:Herrera Stuart Relation to Subscriber:Self Name:Herrera Stuart Payer ID:[id number] (NA) Type:PPO Address: [address] [place] [id number] CIGNA PPO CIGNA PPO CIGNA PPO Care Teams Nut Grader Relationship Specialty Start Date End Date Romeo Bass PA [address] [place] [address] PCP - General Physician Order Builder 01/22/25 Additional Source Comments The information contained in this document represents components of the legal health record. It is not the complete legal health record.[facility]
[2025-05-09 07:41] LABS: Hematocrit 44.2 % (42.0-52.0); Hemoglobin 15.4 g/dl (14.0-18.0); Mean Corpuscular HGB Conc 34.8 g/dl (31.0-36.0); Mean Corpuscular Hemoglobin 29.7 pg (27.0-33.0); Mean Corpuscular Volume 85.2 fL (80.0-98.0); NRBC Abs Auto 0.000 X10*3/uL (0.0-0.012); NRBC Pct Auto 0.0 /100WBC (0.0-0.2); Platelet Count 240 X10*3/uL (160-400); Red Blood Count 5.19 X10*6/uL (4.60-5.80); White Blood Count 5.8 X10*3/uL (4.8-10.8)
[2025-05-09 08:22] LABS: Appearance Urine Clear; Glucose Urine UA Negative (Negative); PH 6.5 (5.0-9.0); Specific Gravity - Urine <= 1.005 (1.005-1.025)
[2025-05-09 08:27] LABS: Alanine Aminotransferase 28 U/L (0-40); Albumin Level 4.5 g/dL (3.5-5.0); Alkaline Phosphatase 50 U/L (39-117); Anion Gap 11 (12-20); Aspartate Amino Transferase 49 U/L (5-37); Blood Urea Nitrogen 9 mg/dL (9-16); Calcium 9.3 mg/dL (8.4-10.2); Carbon Dioxide 26 mmol/L (22-29); Chloride 107 mmol/L (96-108); Cholesterol 117 mg/dL (<200); Estimated Glomerular Filt Rate > 60; HDL Cholesterol 34 mg/dL (>40); Potassium 4.1 mmol/L (3.3-5.1); Sodium 140 mmol/L (135-145); Total Protein 7.0 g/dL (6.5-8.0); Triglycerides 114 mg/dL (<150)
[2025-05-09 08:44] LABS: Folate 10.5 ng/mL (> or = 4.0); Vitamin B12 543 pg/mL (200-900)
[2025-05-13 15:43] LABS: Testosterone, Free 67.5 pg/mL (35.0-155.0)
== END 2025-05-09 06:08 | disposition home or self-care (01) ==
LOC: HO.LAB 06:07
PROVIDERS: PCP Physician Assistant; Visit Provider Physician Assistant
DX: R30.0 Dysuria (principal); E66.01 Morbid (severe) obesity due to excess calories; Z68.41 Body mass index [BMI] 40.0-44.9, adult; E78.00 Pure hypercholesterolemia, unspecified; E55.9 Vitamin D deficiency, unspecified; E53.8 Deficiency of other specified B group vitamins; R68.82 Decreased libido; R53.83 Other fatigue
CPT/HCPCS: 36415; 80053; 80061; 81003; 82306; 82607; 82746; 84402; 84403; 84443; 85027

== ENCOUNTER 2025-07-18 10:06 | Outpatient (AMB) | payer OTHER, SELFPAY ==
--- NOTE | 2025-07-18 10:25 | A.OFFPC_ITS ---
Vital Signs 3 07/18/25 10:27 Height 5 ft 11 in Weight 284 lb 6 oz BMI 39.7 BP 138/86 Blood Pressure Location Lt brachial Position Sitting Pulse 72 Pulse Source Pulse Oximeter Temp 97.3 F Temp Source Temporal Artery Scan Pulse Oximetry (%) 98 Oxygen Delivery Method Room Air Intake Visit Reasons: f/u urgent care shingles Allergies No Known Allergies (No Known Allergies*) Allergy (Verified 07/18/25 11:11) Medication List - Last Reconciled 07/18/25 by Romeo Bass PA-C atorvastatin 20 mg PO DAILY 90 days cholecalciferol (vitamin D3) 50 mcg PO DAILY hydroxyzine HCl 25 mg PO QID Tobacco use date assessed: 07/18/25 Dental Screening Dental Screen Date: 07/18/25 Did you have a dental visit in the last 12 months?: Yes Did you have a dental problem in the last 6 months where you did not have access to dental care?: No Was dental information given to patient?: Patient has dentist HPI f/u urgent care shingles 2 HPI0 Details The patient is a 45-year-old male presenting for a follow-up visit after being diagnosed with shingles at an urgent care facility. This is his first occurrence of shingles, which presented as a small patch on his back. He reports a history of chickenpox as a child. The patient initially mistook the lesion for a pimple or a pulled muscle and saw a chiropractor before realizing it was shingles. By the time he went to urgent care, the rash had started to scab over, so he was not prescribed antiviral medication but was given an antihistamine for itching. He believes the outbreak was triggered by recent physical or emotional stress. He continues to experience intermittent pain at the site of the rash, which is exacerbated by stretching or certain movements. [facility] Surgical History History of lipoma History of eye surgery History of root canal procedure History of wisdom tooth extraction Family History Father Medical history unknown Mother No problems noted. 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 1. Little interest or pleasure in doing things: not at all 2. Feeling down, depressed, or hopeless: not at all 3. Trouble falling or staying asleep, or sleeping too much: not at all 4. Feeling tired or having little energy: not at all 5. Poor appetite or overeating: not at all 6. Feeling bad about yourself - or that you are a failure or have let yourself or your family down: not at all 7. Trouble concentrating on things, such as reading the newspaper or watching television: not at all 8. Moving or speaking so slowly that other people could have noticed. Or the opposite - being so fidgety or restless that you have been moving around a lot more than usual: not at all 9. Thoughts that you would be better off or of hurting yourself in some way: not at all Total score: 0 Depression Screening Interpretation: Negative Depression Screening Done: Yes 49956 - PHQ-9 Billing: Yes Source: Developed by Drs. Oleg Amanda, Dominique Valencia, Steven Scruggs and colleagues, with an educational verónica from [employer]. Thrive Questionnaire Date Thrive assessed: 07/17/25 I am a: Patient What is your living situation today?: I have a steady place to live Within the past 12 months, did the food you bought not last and you didn't have the money to get more?: Never true Within the past 12 months, did you worry whether your food would run out before you got money to buy more?: Never true Do you have trouble paying for medicines?: No Do you have trouble getting transportation to medical appointments?: No Do you have trouble paying your heating and electricity bill?: No Do you have trouble taking care of your child, family member or friend?: No Do you have trouble with day-to-day activities such as bathing, preparing meals, shopping, managing finances, etc.?: No Are you currently unemployed and looking for a job?: No Are you interested in more education?: No Please select the resources that you would like help with: None Currently or been in a relationship where the following occur: No concerns reported THRIVE Score: 0 AUDIT C Alcohol Use Questionnaire (AUDIT-C) 1. How often do you have a drink containing alcohol?: 2-4 times a month 2. How many drinks containing alcohol do you have on a typical day when you are drinking?: 1 or 2 3. How often do you have six or more drinks on one occasion?: Never Total Score: 2 VELVET-7 AMB Questionnaire VELVET-7 Date VELVET - 7 assessed: 07/18/25 Feeling nervous, anxious, or on edge: 0 = Not at all Not being able to stop or control worryin = Not at all Worrying too much about different things: 0 = Not at all Trouble relaxin = Not at all Being so restless that it is hard to sit still: 0 = Not at all Becoming easily annoyed or irritable: 0 = Not at all Feeling afraid as if something awful might happen: 0 = Not at all Total VELVET-7 score (0-4 normal; 5-9 mild; 10-14 moderate; 15-21 severe): 0 Source: Developed by Drs. Oleg Amanda, Dominique Valencia, Steven Scruggs and colleagues, with an educational verónica from [employer]. VELVET-7 Assessment Billing VELVET-7 Assessment Tool: VELVET-7 Assessment 43593 Review of Systems Const Denies headache(s) Eyes Denies loss of vision ENT Denies vertigo, Denies dizziness, Denies headache(s) and Denies sore throat Card Denies chest pain, Denies leg edema and Denies lightheadedness Resp Denies cough, Denies hemoptysis and Denies wheezing GI Denies abdominal pain, Denies melena, Denies constipation, Denies diarrhea and Denies vomiting Denies dysuria, Denies urinary frequency and Denies urinary urgency Musc Denies arthralgias, Denies joint swelling, Denies numbness and Denies tingling Neuro Denies Abnormal speech present, Denies behavioral changes, Denies vertigo, Denies dizziness, Denies headache(s), Denies loss of vision, Denies memory loss, Denies numbness and Denies tingling Psych Denies anxiety, Denies behavioral changes, Denies depression, Denies memory loss and Denies panic attacks Arya/Lymph Denies easy bleeding and Denies easy bruising Aller/Immun Denies wheezing Physical exam (Primary Care) Vital Signs: Last Vital Signs Temp 97.3 F 07/18/25 10:27 Pulse 72 07/18/25 10:27 BP 138/86 07/18/25 10:27 Pulse Ox 98 07/18/25 10:27 Oxygen Delivery Method Room Air 07/18/25 10:27 BMI result Body Mass Index 39.7 Tobacco/Smoking Status: Tobacco use Status Tobacco use date assessed 07/18/25 07/18/25 10:32 Patient Tobacco Use Status Never used Tobacco 07/18/25 10:26 Tobacco use type 05/30/24 08:37 e-Cigarette/Vaping Use Never Used 07/18/25 10:26 PHQ-9: PHQ-9 Score PHQ-9: Total score 0 07/18/25 11:19 Depression Screening Interpretation: Negative Thrive Assessment: Date of Thrive Assessment Date Thrive assessed 07/17/25 07/18/25 10:26 Currently or been in a relationship where the following occur: No concerns reported Const General: healthy appearing, no acute distress, alert and awake Nutritional Appearance: well nourished Orientation/consciousness: oriented to person, oriented to place and oriented to time HENMT Ears: TM's normal bilaterally General nose exam: Normal nasal mucous membranes and turbinates present Eyes Conjunctivae: conjunctivae normal Sclerae: sclerae normal Pupils: Equal, round and reactive pupils present Neck Neck: Yes no lymphadenopathy and Yes no JVD Thyroid: Thyroid normal Carotids: no bruits Resp Effort & Inspection: normal respiratory effort and not tachypneic Auscultation: no crackles, no rales, no rhonchi and no wheezes Cardio Rate: regular rate Rhythm: regular rhythm Heart sounds: no murmurs and normal S1 and S2 GI Palpation (GI): Soft to palpation, nontender, no hepatomegaly and no splenomegaly Auscultation: normal bowel sounds Back/Spine/Pelvis Back/spine/pelvis image: 2 1. DRIED SCALED GROUP VESICLES OVER THE UPPER BACK REGION Skin General skin exam: no rashes or lesions noted and dry skin Neuro General: oriented to person, oriented to place and oriented to time Cranial nerves: Yes Equal, round and reactive pupils present Speech: No Abnormal speech present Gait exam (Neuro): Normal gait present Motor exam (neuro): no tremor noted Extrem Right upper extremity: full ROM Left upper extremity: full ROM Right lower extremity: full ROM; no edema Left lower extremity: full ROM; no edema Psych Mental Status: mental status grossly normal Speech and movement: Normal speech and movement present Affect: normal affect Attitude: cooperative Thought process: Normal thought process present Coding Level of Care Code Est Pt Level 3 (48288) Diagnoses Herpes zoster without complication B02.9 Herpes zoster complications: without complications Additional Codes VELVET-7 Assessment Billing - VELVET-7 Assessment Tool: VELVET-7 Assessment 70265 ([id number]) PHQ-9 - 21576 - PHQ-9 Billing: Yes ([id number]) Assessment & Plan Assessment & Plan (1) Herpes zoster: Code(s): B02.9 - Zoster without complications Category: Medical Qualifiers: Herpes zoster complications: without complications Qualified Code(s): B 02.9 - Zoster without complications Plan: Regarding the patient's herpes zoster, no active antiviral therapy is indicated as the rash is already healing. For the associated nerve pain, gabapentin was discussed as a treatment option, but the patient currently declines as the pain is manageable. The patient was instructed to use the online portal to request a prescription for an antiviral medication, such as Valtrex, at the first sign of a future outbreak to ensure early treatment. For health maintenance, the shingles vaccine is not recommended at this time, as the patient is under 50 and not immunocompromised, per CDC guidelines. The plan is to reconsider the vaccine when he reaches age 51. Orders: Orders 2 Complete Blood Count no Diff Today E78.00 - Pure hypercholesterolemia, unspecified Comprehensive [place]. Panel Fast Today E78.00 - Pure hypercholesterolemia, unspecified Lipid Panel Today E78.00 - Pure hypercholesterolemia, unspecified
[2025-07-18 10:27] VITALS: BP 138/86; PULSE 72; TEMP 36.3; O2SAT 98; BMI 39.7
--- OUTSIDE RECORDS SUMMARY | 2025-07-18 11:48 | XMS_ITS | Patient Health Record ---
Author Organization [facility] Address [address] [place] [address] Care Team Providers Care Freelance Translator Name Role Phone Slava Horne MD Primary Care Provider UnavailAvery [place]enport Unavailable [phone] Aure Kincaid Unavailable Unavailable Reason For Referral [...] Insured Coverage Start Date Coverage End Date [facility] [address] [facility] [address] [id number] Herrera Stuart Self - patient is the insured Medical (General) History Medical History History ICD Code Cervical radiculopathy Vitamin D deficiency Mixed Hperlipidemia IFG Tinea versicolor Multiple Benign Nevi Chicken pox Surgical History Surgery Date(Month/Year) Tooth extraction 03/2019 root canal 2016 Right axilla lipoma 08/2017 tooth implant Eye lasix 12/2018
--- OUTSIDE RECORDS SUMMARY | 2025-07-18 11:48 | XMS_ITS | Clinical Summary ---
Author Organization [facility] Address [address] [facility] [address] [place] [address] Phone Care Team Providers Care Nut Culler Name Role Phone Romeo Bass Primary Care [...] 2025 , 06/25/2023, 06/19/2022, Additional history exists COVID-19 VACCINE ( season) 2025 05/12/2024, 06/25/2023, 06/19/2022, Additional history exists Adult Td,Tdap Booster 08/29/2028 08/29/2018 , 08/29/2018, 08/21/2015 HEPATITIS A VACCINES Aged Out 01/11/2025 No long er eligible based on patient's age to complete this topic SMOKING STATUS SCREENING (Once After 26 Yrs) Completed 02/02/2025 HIB VACCINES Aged Out No longer eligi ble based on patient's age to complete this topic IPV VACCINES Aged Out No longer eligi ble [...] Insurance CIGNA PPO CIGNA PPO CIGNA PPO CIGNA PPO CIGNA PPO CIGNA PPO Member Subscriber Plan / Payer (Ef fective 2018-Present) Name:Herrera Stuart Relation to Subscriber:Self Name:Herrera Stuart Payer ID:[id number] ([facility]) Type:PPO Address: [address] [place] [id number] Care Teams Nut Culler Relationship Specialty Start Date End Date Romeo Bass PA [address] [place] [address] PCP - General Physician Excellence Consultant 01/22/25 Additional Source Comments The information contained in this document represents components of the legal health record. It is not the complete legal health record.[facility]
--- OUTSIDE RECORDS SUMMARY | 2025-07-18 11:48 | XMS_ITS | Data Portability ---
Author Organization [facility] [address] Address [address] [place] [address] Assessment No assessment recorded. Plan of Treatment Reminders Order Date Submit Date Provider Last Modified By Organization Details Last Modified Time Details Appointments None recorded. Lab None recorded. Referral None recorded. Procedures None recorded. Surgeries None recorded. Imaging None recorded. Medication Orders prednisone 10 mg tablet 2021 [id number], [address] [place], [address], 09:58:58 albuterol sulfate HFA 90 mcg/actuati on aerosol inhaler 2021 [id number], [address] [place], [address], 09:58:58 Patient TargetsNo targets recorded. Patient Instructions Encounter Date Encounter Id Patient Instructions Last Modified By Organization Details Last Modified Time 08/09/2022 [id number] cough: care instructions [email or web address] Not available 08/09/2022 09:58:56 Acute bronchitis is [...] Pain 3. Wheezing 4. Coughing up Blood [email or web address] Not available 08/09/2022 09:58:07 Reason for Referral None Reported. Problems Name Problem SNOMED Code Status Onset Date Resolution Date Notes Provider Name and Address Organization Details Recorded Time Hypercholestero lemia [id number] Active 2021 [facility] Drake - [facility] [...] Heart rate Respiratory rate Body temperature Systolic And Diastolic Provider Name and Address Organization Details Last Updated DateTime 180.34 cm 41.1 kg/m2 066593. 75 g 96 % 96 % 74 /min 18 /min 98.1 [degF] 138/89 mm[Hg] JIGAR CRAWFORDAU [facility] 09:18:51 Social History Question Answer Notes LastModified by [employer] Details LastModified Time Tobacco Smoking Status Never Smoker JIGAR AGARWAL [place], [place] [facility] 08/09/2022 09:15:50 What Is Your Water Source? City Information not available 08/09/2022 What Is Your Heat Source? Electric Information not available 08/09/2022 Have You Had Direct Contact, Or Contact During Intimacy, With Monkeypox Rash, Scabs, Or Body Fluids From A Person With Monkeypox? No Information not available 08/09/2022 Have You Recently Traveled Abroad? No Information not available 08/09/2022 Sex: Unknown Functional Status Question Answer Note LastModified by [employer] Details LastModified Time Do you use any illicit or recreational drugs? No Information not available 08/09/2022 Do you or have you ever used any other forms of tobacco or nicotine? No Information not available 08/09/2022 What is your level of alcohol consumption? Occasional Information not available 08/09/2022 Are you currently employed? Yes Information not available 08/09/2022 Mental Status None recorded. Family History Nothing [...] Diagnosis SNOMED-CT Code Diagnosis ICD10 Code Diagnosis IMO Codes Diagnosis Note [id number] [facility] [address] [place] [phone] 07/05/2022 08:31:22 07/05/2022 09:14:54 [id number] [facility] STEVE [address] [address] [place] [address] 08/09/2022 08:17:21 08/09/2022 10:49:30 Acute bronchitis 96471206 J20.9 Health Concerns Section Related Observation LastModified by Organization Detai ls LastModified Time None Recorded Concern Status LastModified by Organization Details LastModified Time None Recorded Advance Directives Directive None Recorded Payers Encounter Date Sequence Insurance Name Policy Number Policy Preston Covered Member ID Preston Member ID Guarantor Name 07/05/2022 1 [employer] [id number] Herrera Stuart [id number] Herrera Stuart 08/09/2022 1 [employer] [id number] Herrera Stuart [id number] Herrera Stuart Notes Date Note Type Note Provider Name and Address Organization Details Recorded Time 08/09/2022 text/html CoughReported by PatientHPIFor quality, patient reportsintermittent. For severity, patient reportsmoderate. For duration, patient reports___ daysandsymptoms lasting over 2 weeks. For timing, patient reportsconstant. For context, patient reportsnon-smoker. For modifying factors, patient reportscough suppressant. For associated symptoms, patient reportsno fever,no chills,no chest pain,no heartburn,no nausea,no vomiting,no wheezing, andno post nasal drip.The patient was seen 3 weeks ago and had a severe sore throat at that time. He reports that the symptoms regarding that has improved. Cough is constant - worse when trying to talk, but is sporatic. Was taking the Tessalon which has not helped. Some other cough suppressants were tried without relief. Denies smoking or asthma history. ANANTH STEVE [facility] [place], [address], [place] - [facility] 08/09/2022 10:02:07
--- OUTSIDE RECORDS SUMMARY | 2025-07-18 11:48 | XMS_ITS | Encounter Summary ---
Author Organization [facility] Address [address] [facility] [address] [place] [address] Phone Care Team Providers Care De Ionizer Operator Name Role Phone Romeo Bass Primary Care Provider + Encounter Details Date Type Department Care Team ([facility] st Contact Info) Description 02/02/2025 Procedure Pass OR Admitting Dept - Virtual Department [address] [place] [address] Social History Tobacco Use Types Packs/Day Years [...] on filedocumented in this encounter Care Teams De Ionizer Operator Relationship Specialty Start Date End Date Romeo Bass PA [address] [place] [address] PCP - General Physician Director Of Online Merchandising 01/22/25 documented as of this encounter Additional Source Comments The information contained in this document represents components of the legal health record. It is not the complete legal health record.[facility]
--- OUTSIDE RECORDS SUMMARY | 2025-07-18 11:48 | XMS_ITS | Data Portability ---
Author Organization [place] - [facility] Former[facility], Allergy Address [address] [address] Care Team Providers Care Dining Server Name Role Phone YOLANDE RENO Primary Care Provider Assessment Encounter Date Assessment Date Assessment LastModified by Organization Details LastModified Time 02/05/2025 02/05/2025 The patient is doing well [...] up as scheduled. All questions were answered. [email or web address] Not available 02/05/2025 16:11:27 02/09/2025 02/09/2025 The patient continues to do well following parotidectomy. Sutures were removed without difficulty. 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 Follow up in 1 month post operatively for reevaluation. [email or web address] Not available 02/09/2025 09:34:10 Plan of Treatment Reminders Order Date Submit [...] contr ast No observ ation record ed. [email or web address] Not Available 09/07 13:17:46 02/02/20 25 09/10/2024 MRI, head + neck + orbit s, w/wo contr ast No observ ation record ed. [email or web address] Not Available 01/05 09:35:43 Result Notes None recorded. 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; Note: Date Diagnosed : 04/11/2020 5:21 PM (D11.0) Not Available [facility] 4 02:29:18 Mass of left parotid gland 03673195418 911191 Active 2024 LAVERNE STYLES MD [address] [place], [place] [address], [address] , [place] - [facility] 5 09:03:12 Loss of sense of smell 25527218 Active 2024 LAVERNE STYLES MD [address] [place] [address],[place] [address], [address] , [facility] - [facility] 5 09:03:19 Neoplasm of parotid gland 440949873 Active 2024 AURELIO RUTHERFORD MD [address] [place] [address],[place] [address], [address] , [place] - [facility] 12:03:40 Problem Notes None recorded. Procedures Surgical History Date Name Laterality Status Provider Name and Address Organization Details Recorded Time 02/03/20 partial parotidectomy completed AURELIO RUTHERFORD MD [address], [address], [place] - [facility] 02/02/2025 13:52:32 Imaging Results None recorded. Procedure [...] Updated DateTime 10/16/2024 180.34 cm 38.2 kg/m2 792900.31 g Maritza Rodriguez [place] - [facility] 10/16/2024 11:25:31 Date Recorded Body height Body mass index (BMI) Body weight Provider Name and Address Organization Details Last Updated DateTime 11/24/2024 180.34 cm 38.2 kg/m2 136909.31 g Mike Shine [place] - [facility] 11/24/2024 08:20:00 Date Recorded Body height Body mass index (BMI) Body weight Provider Name and Address Organization Details Last Updated DateTime 02/05/2025 180.34 cm 38.1 kg/m2 626003.72 g Dimple Velazquezkaren [place] - [facility] 02/05/2025 15:17:31 Date Recorded Body height Body mass index (BMI) Body weight Provider Name and Address Organization Details Last Updated DateTime 02/09/2025 180.34 cm 38.1 kg/m2 353845.72 g Ludy Harry [place] - [facility] 02/09/2025 09:03:27 Date Recorded Body height Body mass index (BMI) Body weight Provider Name and Address Organization Details Last Updated DateTime 2025 180.34 cm 38.1 kg/m2 183614.72 g Mike Shine [place] [facility] 2025 08:22:58 Social History Question Answer Notes LastModified by Organizat ion Details LastModified Time Tobacco Smoking Status Never Smoker Sarah mcintosh [place] - [facility] 09/25/2024 08:47:22 How Many Years Have You Consumed Alcohol? 20 [email or web address] Information not available 02/09/2025 What Type Of Roller Repairer Do You Use? None [email or web address] Information not available 02/09/2025 How Many Alcoholic Drinks Do You Consume Per Day On Average? 0 [email or web address] Information not available 02/09/2025 Do You Have Any Pets? No Information not available 02/09/2025 Are You Passively Exposed To Smoke? No [email or web address] Information not available 02/09/2025 Are There Any Smokers In Your House? No [email or web address] Information not available 02/09/2025 Sex: Unknown Functional Status Question Answer Note LastModified by Organization Details LastModified Time How many times per week do you consume alcohol? Less than 1 time per week [email or web address] Inform ation not available 02/09/2025 Do you use any illicit or recreational drugs? No [email or web address] Information not available 02/09/2025 Do you or have you ever used any other forms of tobacco or nicotine? No [email or web address] Information not available 02/09/2025 What is your level of alcohol consumption? Occasional Information not available 02/09/2025 What type of noise exposure are you exposed to? [email or web address] Infor mation not available 02/09/2025 Mental Status None recorded. Family History Nothing Reported. Medical History Condition Response Allergies/Hayfever N Heart Problems N Anxiety N Tonsil Infections N Emphysema N Migraines N Thyroid Problems N Glaucoma N Developmental Delay N Depression N COPD N Nasal or Sinus Problems N Anemia N Immune System Disorder N Anesthesia Complications N Heart Attack ([place]) N Other Skin Condition N Diabetes N [...] ICD10 Code Diagnosis IMO Codes Diagnosis Note [id number] LAVERNE STYLES MD [facility] [address] [address] 09/25/2024 08:42:07 09/25/2024 09:08:47 Mass of left parotid gland 6266891399 9452423 R22.1 Loss of se nse of smell 38691674 R43.0 [id number] AURELIO RUTHERFORD MD [facility] [address] [address] 10/16/2024 11:15:39 10/16/2024 12:02:39 Benign neoplasm of parotid gland 66661648 D11.0 Given it is becoming intermitte ntly [...] of gland. Neoplasm o f parotid gland 573011503 D49.0 [id number] AURELIO RUTHERFORD MD [facility] on [address] [place] [address] 11/24/2024 08:17:56 11/24/2024 08:40:23 Benign neoplasm of parotid gland 95617297 D11.0 Given it is becoming intermitte ntly [...] Looks superficia l at tail of gland. [id number] MIRTA LIEBERMAN PA-C [facility] [address] [place] [address] 02/05/2025 15:10:23 02/05/2025 15:52:02 Benign neoplasm of parotid gland 36546743 D11.0 Postoperative visit 1836 39456 Z48.89 [id number] ABIMAEL CASTRO PA-C [facility] 100 [place] [address] 02/09/2025 08:45:30 02/09/2025 09:31:52 Benign neoplasm of parotid gland 35450006 D11.0 Postoperative visit 1836 49288 Z48.89 [id number] AURELIO RUTHERFORD MD [facility] on [address] [place] [address] 2025 08:20:26 2025 08:56:09 Surgical follow-up [id number] [id number] I discussed the benign pathology. I discussed the tumor fragmented in surgery and there was no gross tumor at the conclusion of surgery. I discussed the risk of recurrence . I discussed I would want to monitor him over time. We will have him follow-up in 6 months and he will call me if he notes any facial swelling or other concerns. Health Concerns Section Related Observation LastModified by Organization Detai ls LastModified Time None Recorded Concern Status LastModified by Organization Details LastModified Time None Recorded Advance Directives Directive None Recorded Payers Insurance Date Sequence Insurance Name Policy Number Policy Preston Covered Member ID Preston Member ID Guarantor Name [id number] 1 [id number] Herrera Stuart [id number] Herrera Stuart Notes Date Note Type Note Provider Name and Address Organization Details Recorded Time 10/16/2024 text/html ROS as noted in the HPI Presents for parotid tumor. Saw Dr. Asif [...] Had an MRI 09/2023 which showed a [id number] left parotid tumor. It had changed character and became more firm and was sore. Now it is softer again. AURELIO RUTHERFORD MD 100 [facility],[address], [address], [facility] - [facility] 10/16/2024 12:05:13 11/24/2024 text/html ROS as noted in the HPI Presents for parotid tumor. Has had episodes [...] Had an MRI 09/2023 which showed a [id number] left parotid tumor. It had changed character and became more firm and was sore. Now it is softer again. AURELIO RUTHERFORD MD 100 [facility],[address], [address], [facility] - [facility] 11/24/2024 08:38:38 02/05/2025 text/html ROS as noted in the HPI 44-year-old male presents status post left parotidectomy with Dr. Rutherford on 02/02. He is doing well postoperatively without concerns. IDANNE with about 10 cc of drainage in 24 hours. FNA consistent with Warthin. OLLIE VELA MD 100 [facility],[address], [address], [facility] - [facility] 02/05/2025 18:08:23 02/09/2025 text/html ROS as noted in the HPI 44-year-old male presents for second postop visit status post left parotidectomy with Dr. Rutherford on 02/02/2025. He continues to do well postoperatively. DIANNE drain was previously removed on 02/05. On last day of Augmentin. NATASHA GAVIRIA MD 100 [facility] [place], [address], [facility] - [facility] 02/09/2025 12:09:41 2025 text/html ROS as noted in the HPI Hx of left parotidectomy. Path showed oncocytoma. Tumor fragmented in surgery. Frozen sent (benign). Surgical clips placed in would bed as marker. No postop issues. Has some incisional numbness. AURELIO RUTHERFORD MD [address] [place] [address], [place], [address], [facility] - [facility] 2025 08:59:28
== END 2025-07-18 11:21 | disposition home or self-care (01) ==
LOC: HO.HMCH 10:07
PROVIDERS: PCP Physician Assistant; Visit Provider Physician Assistant
DX: B02.9 Zoster without complications (principal)

== ENCOUNTER → 2025-07-18 10:06 | Outpatient (BNVA) | payer OTHER, SELFPAY | PROVIDERS: PCP Physician Assistant; Visit Provider Physician Assistant | DX: B02.9 Zoster without complications (principal); E78.00 Pure hypercholesterolemia, unspecified | CPT/HCPCS: 96127 ==